=== PATIENT | female | born 2000 | race Hispanic/Latino ===

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

== ENCOUNTER 2018-12-01 09:53 | Outpatient (CLI) | payer OTHER ==
--- NOTE | 2018-12-01 12:00 | ULT ---
EXAM: Obstetrical ultrasound greater than 14 weeks: HISTORY: Size and dates, anatomy COMPARISON: None. FINDINGS: Single viable intrauterine fetus is noted in transverse maternal right side presentation. heart rate equals 143 bpm. Placenta is anterior. Cervical length is 6.8 cm. Amniotic fluid is Within normal limits. anatomy: Visualized brain, 4 chamber heart, chest, three-vessel cord, cord insert, stomach, bladder, kid neys, spine, and extremity regions are unremarkable. biometry: BPD: 4.4 cm--19 weeks 2 days Head circumference: 17.0 cm--19 weeks 5 days Abdominal circumference: 14.0 cm--19 weeks 3 days Femur length:2.9 cm--19 weeks 0 days IMPRESSION: Gestational age by ultrasound: 19 weeks 3 days TODD by ultrasound: 04/24/2019 Estimated weight: 278 g
== END 2018-12-01 09:54 | disposition home or self-care (01) ==
LOC: BICULT 09:53
PROVIDERS: ATTEND Family Medicine
DX: Z34.02 Encounter for supervision of normal first pregnancy, second trimester (principal); Z3A.19 19 weeks gestation of pregnancy
CPT/HCPCS: 76805

== ENCOUNTER 2019-04-14 11:27 | Inpatient (IN) | payer OTHER ==
[2019-04-14] MEDS ORDERED: Bupivacaine PF 0.5% 30 ML VIAL ONE (11:41)
[2019-04-14] MEDS ORDERED: Bupivacaine 0.25% HCL 30 ML VIAL ONE (11:41)
[2019-04-14 12:08] VITALS: BMI 25.7
[2019-04-14] MEDS ORDERED: hydrALAZINE 20 MG/ML VIAL SLOW IVP PRN ×2 (12:21→17:17)
[2019-04-14] MEDS ORDERED: Lidocaine 1% (PF) 30 ML VIAL SC PRN ×2 (12:21→17:17)
[2019-04-14] MEDS ORDERED: Ibuprofen 800 MG TAB PO PRN ×2 (12:21→17:17)
[2019-04-14] MEDS ORDERED: HYDROcodone/Acetaminophen 5/325 mg Tablet PO PRN ×4 (12:21→17:17)
[2019-04-14] MEDS ORDERED: Promethazine HCl 25 MG/ML VIAL IM PRN ×2 (12:21→17:17)
[2019-04-14] MEDS ORDERED: Ondansetron PF 4 MG/2 ML Vial IVP PRN ×2 (12:21→17:17)
[2019-04-14] MEDS ORDERED: NS / Oxytocin 40 units/1000ml 1,000 ML IV PRN ×2 (12:21→17:17)
[2019-04-14 13:44] LABS: Mean Corpuscular HGB CONC 35.3 g/dL (32.0-36.0); Mean Corpuscular Hemoglobin 30.9 pg (27.0-31.0); Mean Corpuscular Volume 87.6 fL (78.0-98.0); Mean Platelet Volume 10.1 fL (7.4-10.4); Platelet Count 156 thou/uL (130-400); RBC Distribution Width 12.5 % (11.5-14.5); Red Blood Cell (RBC) Count 3.57 mill/uL (4.20-5.40); White Blood Cell (WBC) Count 10.4 thou/uL (4.8-10.8)
[2019-04-14 14:09] LABS: Creatinine, Urine 21.15 mg/dL (47-110)
[2019-04-14 14:19] LABS: Syphilis Antibody Nonreactive (Nonreactive); Syphilis Antibody Index 0.02 S/CO (<1.00 Non-Reactive)
[2019-04-14 14:20] LABS: HBSAg Index 0.23 S/CO (0-0.99); Hep B Surf Ag Non-Reactive S/CO (NonReactive)
[2019-04-14 14:50] LABS: ALT (SGPT) 36 U/L (8-55); AST (SGOT) 39 U/L (5-34); Albumin 3.2 g/dL (3.5-5.0); Alkaline Phosphatase 464 U/L (40-110); Anion Gap 16 mmol/L (10-20); BUN (Urea Nitrogen) 30 mg/dL (7.0-18.7); Bilirubin, Total 1.1 mg/dL (0.2-1.2); Calc. Creatinine Clearance 50 mL/min (70-130); Calcium 8.9 mg/dL (7.8-10.44); Carbon Dioxide 21 mmol/L (22-29); Chloride 104 mmol/L (98-107); Estimated GFR-MDRD 38; Globulin 2.8 g/dL (2.4-3.5); Glucose 65 mg/dL (70-105); Potassium 4.1 mmol/L (3.5-5.1); Sodium 137 mmol/L (136-145)
[2019-04-14 14:56] LABS: Hemoglobin A1c 5.2 % (4.0-6.0)
--- NOTE | 2019-04-14 15:15 | ULT ---
Limited obstetrical ultrasound: 04/14/2019 COMPARISON: None HISTORY: Possible intrauterine growth retardation, gestational diabetes TECHNIQUE: The plantar grayscale sonographic imaging of the gravid uterus obtained. FINDINGS: Single intrauterine gestation present with a vertex presentation. Placenta located anterior ly with no evidence for placental previa or abruption. heart rate 144 bpm. Amniotic fluid index 18.4 cm. anatomy not assessed on this exam. biometry: Biparietal diameter 8.5 cm 34 weeks 1 day Head circumference 31.7 cm 35 weeks 5 days Abdominal circumference 33.4 cm 37 weeks 2 days Femur length 6.9 cm 35 weeks 3 days Estimated weight 2904 g +/- 430 g. Average age based on ultrasound is 35 weeks 5 days. Estimated date of delivery is 05/14/2019. IMPRESSION: Intrauterine gestation as detailed above. Average age based on ultrasound is 35 weeks 5 d ays.
--- NOTE | 2019-04-14 15:23 | ULT ---
BIOPHYSICAL PROFILE: 04/14/19 HISTORY: Diabetes, possible intrauterine growth retardation. Please refer to the other findings in the OB report. The biophysical profile score was 8 of a p ossible 8. heart rate is 144 beats per minute. IMPRESSION: biophysical profile score of 8 of a possible 8. POS: [facility]
[2019-04-14] MEDS ORDERED: Lactated Ringer's 1,000 ML IV SCH (16:00)
--- NOTE | 2019-04-14 16:55 | HP ---
TIME OF ADMISSION: 1500 hours. REASON FOR ADMISSION: Elevated blood pressures with proteinuria noted in the office at 38 weeks gestation with an unfavorable cervix and gestational diabetes. HISTORY OF PRESENT ILLNESS: Ms. Lopez is a 19-year-old primigravida with EDC of 04/28. She is seeing Brenda Zamorano since 7 weeks gestation. has been complicated by recurrent UTIs, which the patient has a history of urosepsis outside of . She has also developed diabetes with a 1-hour GTT of 235. The patient has been intermittently compliant with metformin at 500 b.i.d. She was noted in the office to have elevated blood pressures and also have 2+ proteinuria. She is sent over for further evaluation. DIRECTOR MUSIC HISTORY: As noted. The patient's initial hematocrit was 37%. She is not a cystic fibrosis carrier. She had abnormal 1-hour GTT and nonreactive hepatitis B. Hemoglobin A1c has been normal at 4.9. HIV was negative. Blood type is O positive. Antibody negative. Pap negative. Rubella immune. VDRL nonreactive. The patient had a positive urine culture for E coli in August and has a history of urosepsis. MEDICAL HISTORY: The patient had urosepsis back in 2016. Of note, her creatinine at that time was up to 1.36, but it got down to about 1.1 after treatment. SURGICAL HISTORY: Tubes and adenoids. SOCIAL HISTORY: Denies tobacco, alcohol, or IV drug use. FAMILY HISTORY: Noncontributory. ALLERGIES: DENIES. MEDICATIONS: vitamins and Macrobid nightly and metformin. PHYSICAL EXAMINATION: GENERAL: female resting comfortably. VITAL SIGNS: Blood pressure 138/92, pulse 85, respirations 18, and temperature 98.8. HEENT: Within normal limits. LUNGS: Clear to auscultation bilaterally. HEART: Regular rate and rhythm. ABDOMEN: Her fundal height is 35 cm. FHTs 140s. Vulva without lesions. Vaginal exam deferred. Cervix reported to be closed, long, and high at Dr. Zamorano's office. EXTREMITIES: No clubbing, cyanosis, or edema. DIAGNOSTIC STUDIES: Ultrasound today revealed a biophysical profile of 8/8. Fetus is noted to be vertex presentation with an SAMPSON of 18. Composite gestational age of 35 weeks and 5 days with EFW of 2904, was less than a 50th percentile if not reached the 5th percentile for IUGR for this gestational age. LABORATORY DATA: Laboratory results include a hematocrit of 31% and a platelet count of 156. The patient has noted to have a BUN of 30, a creatinine of 1.68, and a glucose is 65. The patient is asymptomatic from this. AST is slightly elevated at 39, ALT is within normal limits, and alkaline phosphatase is 264. The patient's urine protein to creatinine ratio is approximately 1.3 with creatinine low at 21.15. IMPRESSION: A 38 weeks small for dates gestation with gestational diabetes, on metformin with elevated creatinine and elevated protein to creatinine ratio, laboratory findings consistent with dehydration, and mildly elevated blood pressures without headaches or scotoma. PLAN: Discussed the patient's care of plan with Dr. Zamorano. We will admit the patient. Bolus 1 L of lactated Ringer's. Continue at 100 mL an hour. Check a 24-hour urine and repeat labs in the morning. We will perform serial blood pressures on the floor. We will get renal ultrasound to evaluate kidneys, and keep the patient on Macrodantin at bedtime for UTI prophylaxis. We will hold Glucophage at this time and follow Accu-Cheks q.[address] Zamorano will likely manage the patient beginning 2:14 a.m. Job ID: [id number]
[2019-04-14] MEDS ORDERED: Butorphanol Tartrate 1 MG/ML VIAL SLOW IVP PRN (17:17)
[2019-04-14] MEDS: Lactated Ringer's 1,000 ML IV SCH (17:20)
[2019-04-14] MEDS ORDERED: Misoprostol 100 MCG TAB VAG SCH (17:45)
--- NOTE | 2019-04-14 17:54 | ULT ---
RENAL ULTRASOUND: 04/14/19 COMPARISON: 07/13/16. HISTORY: . Elevated creatinine. TECHNIQUE: Multiplanar soria scale sonographic imaging of the kidneys and urinary bladder obtained. FINDINGS: The right kidney measures approximately 8.9 x 3.2 x 3.4 cm, relatively small. No hydronephrosis is no marcela on the right. Right renal parenchyma is echogenic, suspicious for possible renal medical disease. There are small cysts within the right kidney measuring in the 8-9 mm range. There is severe left sided hydronephrosis. Left kidney measures 8.8 x 4.5 x 4.3 cm. There is prominen t dilation of the proximal left ureter. Prevoid urinary bladder volume is 254 mL. Postvoid urinary bl adder volume is 62 mL. The hydronephrosis and hydroureter on the left persists on the postvoid imagin g. IMPRESSION: 1. Prominent left sided hydronephrosis and hydroureter seen on pre and postvoid imaging. 2. Possible renal medical disease. 3. Hydronephrosis on the left discussed with Dr. Lui at approximately 4:55 p.m., 04/14/19. Code CR POS: [facility]
--- NOTE | 2019-04-14 18:16 | ULT ---
EXAM: US Bladder DATE: 04/14/2019 12:00 AM INDICATION: Evaluate for ureteral jets COMPARISON: None. FINDING: Left and right ureteral jets are demonstrated on color Doppler imaging. IMPRESSION:Demonstration of both left and right ureteral jets.
--- NOTE | 2019-04-14 21:42 | PRG ---
DATE OF SERVICE: 04/14/2019 TIME OF SERVICE: 2119. SUBJECTIVE: Renal ultrasound was obtained on the Ms. Lopez. Findings by Dr. Nassar were discussed with myself at 5:00 pm this evening. The findings include the right kidney measuring 9 x 3 x 3.5 cm, relatively small with no hydronephrosis. Echogenic renal parenchyma, suspicious for intrinsic renal disease with small cyst in the right kidney measuring 8 to 9 mm in greatest diameter. There was severe left-sided hydronephrosis with a kidney measuring 8.8 x 4.5 x 4 cm. There was prominent dilatation of the proximal left ureter. Urinary bladder imaging revealed bilateral ureteral jets ruling out distal obstruction leading to hydronephrosis. While hydronephrosis is common in , it is more common on the right than on the patient's left due to pelvic anatomy. It is unclear as to why the patient has significant hydronephrosis. Renal size is about the same as noted in 2017 on a renal ultrasound when the patient had pyelo, however, the hydronephrosis was not noted. I discussed the patient with Dr. Brenda Zamorano. We both agreed that the most prudent course at this point in time would be to proceed with induction of labor for vaginal delivery and re-evaluate hydronephrosis on the patient's left post delivery. The patient has been started on Cytotec at 15 mcg x1 in the vagina. She has an unfavorable cervix, but has had significant contractions that precluded a second dose of Cytotec. We will continue with Cytotec as allowed per protocol throughout the night and anticipate Pitocin induction on 04/15. heart rate tracing remained category 1. Job ID: [id number]
[2019-04-14] MEDS: Nitrofurantoin Macrocrystal 50 MG CAP PO SCH (23:20)
[2019-04-15] MEDS: Lactated Ringer's 1,000 ML IV SCH ×3 (01:15→21:29)
[2019-04-15] MEDS: Misoprostol 100 MCG TAB VAG SCH ×3 (04:07→13:44)
[2019-04-15 09:45] LABS: ALT (SGPT) 43 U/L (8-55); AST (SGOT) 47 U/L (5-34); Albumin 2.8 g/dL (3.5-5.0); Alkaline Phosphatase 402 U/L (40-110); Anion Gap 17 mmol/L (10-20); BUN (Urea Nitrogen) 31 mg/dL (7.0-18.7); Bilirubin, Total 1.4 mg/dL (0.2-1.2); Calc. Creatinine Clearance 47 mL/min (70-130); Calcium 8.4 mg/dL (7.8-10.44); Carbon Dioxide 19 mmol/L (22-29); Chloride 109 mmol/L (98-107); Estimated GFR-MDRD 36; Globulin 2.8 g/dL (2.4-3.5); Glucose 98 mg/dL (70-105); Potassium 4.1 mmol/L (3.5-5.1); Protein, Total 5.6 g/dL (6.0-8.3); Sodium 141 mmol/L (136-145)
[2019-04-15] MEDS ORDERED: Fentanyl 4 mcg/Bup 0.1% Cadd 100 ML ONE ×2 (10:50→20:33)
[2019-04-15] MEDS ORDERED: diphenhydrAMINE 50 MG/ML VIAL IVP PRN (11:25)
[2019-04-15] MEDS ORDERED: EPHEDRINE 25 MG/5 ML SYRINGE SLOW IVP PRN (11:25)
[2019-04-15] MEDS ORDERED: Ondansetron PF 4 MG/2 ML Vial IVP PRN (11:25)
[2019-04-15] MEDS ORDERED: Lactated Ringer's 500 ML IV PRN (11:25)
[2019-04-15] MEDS ORDERED: Promethazine HCl 25 MG/ML VIAL IM PRN (11:25)
[2019-04-15] MEDS ORDERED: Naloxone HCl 0.4 mg/ml Vial IVP PRN ×2 (11:25)
[2019-04-15] MEDS ORDERED: Communication Order-Pharmacy FS SCH (11:30)
[2019-04-15] MEDS: NS w/ Oxytocin 10 units 500 ML IV SCH (12:09)
[2019-04-15] MEDS: Prenatal Vitamin 1 TAB PO SCH (13:44)
[2019-04-15 17:19] LABS: Urine Total Volume 3850 mL (600-1600)
[2019-04-15 17:37] LABS: 24 Hr Creatinine 850.85 mg/24 hr (710-1650); Creatinine, Urine 22.1 mg/dL (47-110)
[2019-04-15 17:39] LABS: Protein - 24 Hr 1155 mg/24 hr (Less than 300); Protein, Urine 30 mg/dL (1-14)
--- NOTE | 2019-04-15 18:35 | PDOC.EVN ---
Event Note - Event Note Event Note: Asked to AROM by Dr. Zamorano. Comfortable with epidural. SVE /-1, vtx. FHTs stable. AROM- meconium seen. IUPC to be placed by Labor RN.
[2019-04-15] MEDS ORDERED: Calcium Gluc 4.6 MEQ/10 ML (100 MG/ML) SLOW IVP PRN (20:29)
[2019-04-15] MEDS ORDERED: Magnesium Sulfate 20 GM/WATER 500 ML BAG IVPB SCH (20:30)
[2019-04-15] MEDS: Fentanyl 4 mcg/Bupivacaine 0.1% Cassette 100 ML EPIDURAL SCH (20:35)
[2019-04-15] MEDS: Magnesium Sulfate 20 GM in Dextrose 5% in Water 460 ML IV SCH (20:52)
[2019-04-15] MEDS ORDERED: hydrALAZINE 20 MG/ML VIAL SLOW IVP SCH (21:00)
[2019-04-16] MEDS ORDERED: hydrALAZINE 20 MG/ML VIAL SLOW IVP SCH (00:45)
[2019-04-16] MEDS: Magnesium Sulfate 20 GM in Dextrose 5% in Water 460 ML IV SCH ×2 (05:27→19:09)
[2019-04-16] MEDS ORDERED: Fentanyl 4 mcg/Bup 0.1% Cadd 100 ML ONE (06:19)
[2019-04-16] MEDS: Fentanyl 4 mcg/Bupivacaine 0.1% Cassette 100 ML EPIDURAL SCH (06:21)
[2019-04-16] MEDS ORDERED: Ketorolac Tromethamine 30 MG/ML VIAL ONE (07:47)
[2019-04-16] MEDS ORDERED: Oxytocin 10 UNITS/ML VIAL ONE ×2 (07:47→08:33)
[2019-04-16] MEDS ORDERED: MORPHINE 5 MG/10 ML PF VIAL ONE (07:47)
[2019-04-16] MEDS ORDERED: Ondansetron PF 4 MG/2 ML Vial ONE (07:48)
[2019-04-16] MEDS ORDERED: EPHEDRINE 25 MG/5 ML SYRINGE ONE (07:48)
[2019-04-16] MEDS ORDERED: PHENYLEPHRINE-NS 100 MCG/ML 10 ML SYRINGE ONE (07:48)
[2019-04-16] MEDS ORDERED: Dexamethasone 4 mg/ml Vial ONE (08:24)
[2019-04-16 08:37] LABS: Actual Bicarbonate (HCO3a) 21.4 mEq/L (22-28); Actual Bicarbonate (HCO3v) 20 mEq/L (22-28); Base Excess -6.6 mEq/L (-2.0 to +3.0); Base Excess (BEa) -6.9 mEq/L (-2.0 to +3.0); pH (Cord, venous) 7.28 (7.32-7.43)
[2019-04-16] MEDS ORDERED: Promethazine HCl 25 MG SUPP PR PRN (08:40)
[2019-04-16] MEDS ORDERED: Ondansetron HCl/PF 4 MG/2 ML Vial IVP PRN (08:40)
[2019-04-16] MEDS ORDERED: diphenhydrAMINE 50 MG/ML VIAL IVP PRN (08:40)
[2019-04-16] MEDS ORDERED: HYDROmorphone 2 MG/ML VIAL SLOW IVP PRN (08:40)
[2019-04-16] MEDS ORDERED: Ondansetron PF 4 MG/2 ML Vial IVP PRN ×2 (08:40→11:33)
[2019-04-16] MEDS ORDERED: L&D-Morphine 4 MG/ML VIAL SLOW IVP PRN (08:40)
[2019-04-16] MEDS ORDERED: Promethazine HCl 25 MG/ML VIAL IM PRN (08:40)
[2019-04-16] MEDS ORDERED: Naloxone HCl 0.4 mg/ml Vial IVP PRN ×2 (08:40)
[2019-04-16] MEDS ORDERED: Meperidine HCl/PF 25 MG/ML VIAL SLOW IVP PRN (08:40)
[2019-04-16] MEDS ORDERED: Naloxone HCl 0.4 mg/ml Vial IV PRN (08:40)
[2019-04-16] MEDS ORDERED: Communication Order-Pharmacy FS SCH (08:45)
--- NOTE | 2019-04-16 09:10 | OP ---
DATE OF PROCEDURE: 04/16/2019 PREOPERATIVE DIAGNOSES: 1. Term intrauterine with acute versus chronic renal failure. 2. Gestational hypertension. 3. Gestational diabetes. 4. Nonreassuring heart tones. POSTOPERATIVE DIAGNOSES: 1. Term intrauterine with acute versus chronic renal failure. 2. Gestational hypertension. 3. Gestational diabetes. 4. Nonreassuring heart tones. 5. Status post delivery. PROCEDURE PERFORMED: Primary low-transverse section. MACHINE SIGN WRITER: Yan Modi MD ANESTHESIA: Epidural anesthetic. COMPLICATIONS: No complications. DESCRIPTION OF PROCEDURE: After adequate spinal anesthetic, the patient had been placed in the supine position. A wedge was placed under her right flank. The abdomen was prepped and draped in usual sterile technique. A Pfannenstiel incision was made in the inferior aspect of the abdomen. Subcutaneous tissue was opened with sharp dissection. Fascia was opened with sharp dissection. Peritoneum opened with sharp and blunt dissection. It was noted that the abdomen was still with a gravid uterus. A bladder blade was placed and a low-transverse incision was made on the uterus. Noted, moderate meconium fluid. A viable male infant was delivered from OP vertex presentation without difficulty. breathed and cried spontaneously. Cord was clamped and cut and was handed to the care of the Neonatology Team. A section of the cord was excised and sent for cord gases and additional cord blood was obtained. The placenta was delivered manually and appeared intact. The uterus was taken external to the abdominal cavity. Wet lap was placed over the uterus and a second lap used to wipe and clean the uterus. Hysterotomy edges were grasped with ring forceps and the hysterotomy was then closed in one layer in continuous fashion using 0 Monocryl. Sponge and instrument counts were correct. Hemostasis was adequate. There was no bleeding from the hysterotomy edges. Two small bleeders were cauterized on the bladder flap. The wound was inspected. There were no clots in the gutters. No additional bleeding. Noted that there was a buttonhole defect in the anterior fascia, which was repaired with a [id number] fashion with 0 Monocryl and then the fascia was then closed in continuous fashion using 0 Monocryl. Sponge and instrument counts were correct. Few bleeders were cauterized on the subcutaneous tissue and this were then closed with 2-0 plain suture in a running fashion and the skin was closed using tim. The patient tolerated the procedure well, to go to recovery room in good condition. Noted that the baby is a viable male in level I nursery, weight 6 pounds 9 ounces with 7 at one minute, 9 at five minutes and the patient to go to recovery room and subsequently LICU to continue magnesium sulfate. Job ID: [id number]
[2019-04-16 10:05] LABS: ALT (SGPT) 39 U/L (8-55); AST (SGOT) 47 U/L (5-34); Albumin 2.4 g/dL (3.5-5.0); Alkaline Phosphatase 374 U/L (40-110); Anion Gap 17 mmol/L (10-20); BUN (Urea Nitrogen) 24 mg/dL (7.0-18.7); Bilirubin, Total 1.7 mg/dL (0.2-1.2); Calc. Creatinine Clearance 44 mL/min (70-130); Calcium 7.8 mg/dL (7.8-10.44); Carbon Dioxide 17 mmol/L (22-29); Chloride 102 mmol/L (98-107); Estimated GFR-MDRD 33; Globulin 2.6 g/dL (2.4-3.5); Glucose 144 mg/dL (70-105); Sodium 132 mmol/L (136-145)
[2019-04-16 10:31] LABS: Magnesium 9.4 mg/dL (1.6-2.6)
[2019-04-16] MEDS ORDERED: Bisacodyl 10 MG SUPP PR PRN (11:33)
[2019-04-16] MEDS ORDERED: Simethicone Chewable 80 MG TAB PO PRN (11:33)
[2019-04-16] MEDS ORDERED: Acetaminophen 325 MG TAB PO PRN (11:33)
[2019-04-16] MEDS ORDERED: hydrALAZINE 20 MG/ML VIAL SLOW IVP PRN (11:33)
[2019-04-16] MEDS ORDERED: Lanolin Ointment 7 GM TUBE TOP PRN (11:33)
[2019-04-16] MEDS ORDERED: diphenhydrAMINE 25 MG CAP PO PRN (11:33)
[2019-04-16] MEDS ORDERED: Meperidine HCl/PF 25 MG/ML VIAL ONE (12:41)
[2019-04-16 18:20] LABS: Hemoglobin 6.8 g/dL (12.0-16.0); Mean Corpuscular HGB CONC 34.9 g/dL (32.0-36.0); Mean Corpuscular Hemoglobin 31.4 pg (27.0-31.0); Mean Corpuscular Volume 89.9 fL (78.0-98.0); Mean Platelet Volume 9.6 fL (7.4-10.4); Platelet Count 131 thou/uL (130-400); RBC Distribution Width 12.8 % (11.5-14.5); Red Blood Cell (RBC) Count 2.15 mill/uL (4.20-5.40); White Blood Cell (WBC) Count 22.4 thou/uL (4.8-10.8)
[2019-04-16 18:25] LABS: Prothrombin Time 13.6 SEC (12.0-14.7)
[2019-04-16 18:26] LABS: PTT 33.1 SEC (22.9-36.1)
[2019-04-16 18:36] LABS: Band 45 % (5-11); Lymphocytes 4 % (21-51); MDiff Complete? YES; Metamyelocyte 4 % (0-0); Monocytes 1 % (0-10); Neutrophil 46 % (42-75); Platelet Morphology Comment Appears Adequate; Polychromasia SLIGHT = 2-3 cells (100X) (0-2/hpf); Reflex for Review?? YES
[2019-04-16 18:37] LABS: Bacteria/HPF None Seen HPF (None Seen); Bilirubin Negative (Negative); Blood, Urine Negative (Negative); Clarity Clear (Clear); Glucose, Urine (Dipstick) Normal (Negative); Leukocyte Negative Leu/uL (Negative); Nitrite Negative (Negative); Protein, Urine (Dipstick) Negative (Neg-Trace); RBC/HPF 0-3 HPF (0-3); Squamous Epithelial 0-3 HPF (0-3); Urobilinogen Normal mg/dL (Less than 2); WBC/HPF 0-3 HPF (0-3)
--- NOTE | 2019-04-16 18:53 | ULT ---
Exam: Bilateral renal ultrasound HISTORY: Anuria. Elevated creatinine. COMPARISON: 04/14/2019 FINDINGS: Right kidney: Normal cortical echotexture. No hydronephrosis. There is right renal cortical thinning. Right kidney measurements: 3.7 x 4.0 x 8.3 cm. Left kidney: Normal cortical echotexture. Moderate left-sided hydronephrosis. Left kidney measurements 4.4 x 4.1 x 8.4 cm. Urinary bladder: Not be assessed due to bandage overlying the location of the bladder. Trace amount of fluid in the right upper quadrant is noted IMPRESSION: 1. Improved left-sided hydronephrosis. Currently, there is moderate left-sided hydronephrosis. 2. Right renal cortical thinning. Correlate for medical renal disease. 3. Trace amount of fluid in the right upper quadrant. Transcribed Date/Time: 04/16/2019 7:01 PM
[2019-04-16] MEDS: Misoprostol 100 MCG TAB VAG SCH ×2 (19:10→19:11)
[2019-04-16] MEDS: NS w/ Oxytocin 10 units 500 ML IV SCH (19:11)
[2019-04-16] MEDS: Prenatal Vitamin 1 TAB PO SCH (19:12)
[2019-04-16] MEDS: Lactated Ringer's 1,000 ML IV SCH (19:12)
--- NOTE | 2019-04-16 19:38 | CT ---
Exam: Abdomen CT without contrast Pelvic CT without contrast HISTORY: Chronic renal failure. Hydronephrosis. patient. FINDINGS: Abdomen CT: Small bilateral effusion. Bibasilar consolidation may represent atelectasis. Heart size is normal. No significant pericardial fluid. Aorta is unremarkable Limited evaluation of the solid organs by the lack of IV contrast. There is no solid organ abnormalit y. Gallbladder is unremarkable There is free fluid in the abdomen, tracking into the pelvis. Nonobstructing calculus in the upper pole the right kidney measures 1 mm. No significant right sided obstructive uropathy. Moderate left sided hydronephrosis and hydroureter. No evidence of associated obstructing calculus. Evaluation of the left ureter is limited by decreased visceral fat. No mesenteric mass, lymphadenopathy. There are small pockets of free air in the lower pelvic mesenter y, compatible with recent section. Limited evaluation of the alimentary canal by the lack of oral contrast. No evidence of bowel obstruc tion. Pelvic CT: Heterogeneous, enlarged uterus compatible with a state. There are postoperative changes compatible with a section. There are pockets of free air and fluid within the peritoneal cavity as well as within the subcutaneous fat and ventral abdominal musculature. Skin stap les are noted. Leija catheter decompresses the urinary bladder. No lytic or blastic lesions in the osseous structures IMPRESSION: 1. Findings compatible with recent section. 2. Free fluid in the abdomen or pelvis. 3. Moderate right-sided hydronephrosis and hydroureter. Transcribed Date/Time: 04/16/2019 8:03 PM
[2019-04-16 19:50] LABS: ALT (SGPT) 26 U/L (8-55); AST (SGOT) 34 U/L (5-34); Alkaline Phosphatase 273 U/L (40-110); Anion Gap 17 mmol/L (10-20); BUN (Urea Nitrogen) 28 mg/dL (7.0-18.7); Bilirubin, Total 1.7 mg/dL (0.2-1.2); Calc. Creatinine Clearance 40 mL/min (70-130); Calcium 7.4 mg/dL (7.8-10.44); Carbon Dioxide 18 mmol/L (22-29); Chloride 100 mmol/L (98-107); Estimated GFR-MDRD 30; Globulin 1.8 g/dL (2.4-3.5); Glucose 119 mg/dL (70-105); Potassium 4.7 mmol/L (3.5-5.1); Protein, Total 3.8 g/dL (6.0-8.3); Sodium 130 mmol/L (136-145)
[2019-04-16] MEDS: Acetaminophen/Codeine 30-300mg Tablet PO PRN (21:07)
[2019-04-17 05:30] LABS: Hemoglobin 5.6 g/dL (12.0-16.0); Mean Corpuscular HGB CONC 34.4 g/dL (32.0-36.0); Mean Corpuscular Hemoglobin 31.3 pg (27.0-31.0); Mean Corpuscular Volume 90.8 fL (78.0-98.0); Mean Platelet Volume 9.5 fL (7.4-10.4); Platelet Count 146 thou/uL (130-400); RBC Distribution Width 13.1 % (11.5-14.5); Red Blood Cell (RBC) Count 1.77 mill/uL (4.20-5.40); White Blood Cell (WBC) Count 20.3 thou/uL (4.8-10.8)
[2019-04-17 05:42] LABS: ALT (SGPT) 19 U/L (8-55); AST (SGOT) 30 U/L (5-34); Alkaline Phosphatase 225 U/L (40-110); Anion Gap 14 mmol/L (10-20); BUN (Urea Nitrogen) 31 mg/dL (7.0-18.7); Bilirubin, Total 0.9 mg/dL (0.2-1.2); Calc. Creatinine Clearance 37 mL/min (70-130); Carbon Dioxide 19 mmol/L (22-29); Chloride 103 mmol/L (98-107); Estimated GFR-MDRD 27; Globulin 2.4 g/dL (2.4-3.5); Glucose 75 mg/dL (70-105); Potassium 4.9 mmol/L (3.5-5.1); Protein, Total 4.4 g/dL (6.0-8.3); Sodium 131 mmol/L (136-145)
--- NOTE | 2019-04-17 06:36 | PDOC.EVN ---
Event Note - Event Note Event Note: labs this morning sig for h/h down to 5.6/16 from 6.8/19. platelets stable at 146 up from 135. t bili down to 0.9 from 1.7. creatinine continues to climb. 2.29 from 2.09. pt has preeclampsia with acute kidney injury on top of chronic kidney disease. uo has been steady at 30-85cc/hr. and clearing. vitals have been stable with bp in 100s/50's pulse in the 80s. Since attempting to get second IV pt has increase in bp and pulse. this is blood loss from surgery vs hemolysis from HELLP. repeat coags, haptoglobin to eval for hemolysis, ldh, uric acid. repeat CT this morning. PT getting a unit of prbcs. fibrinogen. estimated total iv fluids since admission is 8 liters. urine output since thursday evening is documented at 1699cc. i am not sure the urine out put prior to placement of the soni currently pt appears to be entering her diuresis phase with uo acutely rising, also pointing aware from acute blood loss post operatively. last hour is 245cc an hour.
[2019-04-17 07:13] LABS: PTT 33.8 SEC (22.9-36.1)
[2019-04-17 07:23] LABS: Band 56 % (5-11); Lymphocytes 1 % (21-51); MDiff Complete? YES; Monocytes 3 % (0-10); Neutrophil 40 % (42-75)
--- NOTE | 2019-04-17 08:18 | CT ---
CT ABDOMEN AND PELVIS WITHOUT CONTRAST: 04/17/2019 HISTORY: Recent . Concern for bleeding. COMPARISON: 04/16/2019 TECHNIQUE: Axial CT imaging at 5 mm intervals from the lung bases through the pubic symphysis without contrast. Coronal and sagittal reformatted imaging obtained. FINDINGS: Evaluation of the viscera, bowel and vascular structures and for lymphadenopathy is limited without c ontrast media. The imaged lung base demonstrate increased linear density within the posteromedial asp ects of both lower lobes, suggesting volume loss. The liver is grossly unremarkable. There is stable nonspecific distention of the gallbladder. Stable small volume free fluid is seen adjacent to the right lobe of the liver, anterolaterally. There is fr ee fluid inferior to the tip of the right lobe of the liver, some of which is hyperdense, consistent with hemoperitoneum. The spleen appears grossly unremarkable. There is hyperdense fluid within the le ft paracolic gutter, along the course of the descending colon, consistent with hemoperitoneum in this region as well. This is stable when compared to the 04/16/2019 exam. Limited assessment of the pancr eas and bilateral adrenal glands appears unremarkable. Nonspecific poorly assessed/evaluated left-tegan ed hydronephrosis and proximal hydroureter. Punctate nonobstructing stone upper pole right kidney, st able. Consistent with the patient's history of a recent section, horizontally oriented cutaneous s taples are noted inferiorly. Numerous foci of gas noted throughout the rectus abdominis musculature, consistent with recent surgical procedure. Leija catheter present within a mildly prominent urinary b ladder. There is fluid within the urinary bladder and an air-fluid level. Recommend evaluation for Fo anahi catheter malfunction. The uterus is markedly enlarged and heterogeneous, Internal contents of the uterus are heterogeneous and hyperdense with intermixed gas, consistent with a degree of hemorrhage within the endometrial can al. In the endocervical canal there is expansion with hyperdense material and gas, also consistent wi th hemorrhage, not significantly changed. There is a hematoma within the pelvis, anterior to the lowe r uterine segment and superior to the urinary bladder, measuring 9.1 x 3.6 cm, not significantly cao ged. There is free fluid within the pelvis bilaterally with hemorrhage, as evidenced by multifocal ar eas of hyperdensity within the free pelvic fluid anteriorly, as before. Limited assessment of the bow el demonstrates no convincing evidence for obstruction. Vascular structures are poorly assessed witho ut contrast medial. The osseous structures demonstrate no acute findings. IMPRESSION: Findings consistent with recent section. There is free fluid in the left upper quadrant, mayra ateral paracolic gutters, and within the pelvis with intermixed areas of hyperdensity, consistent wit h extensive stable hemoperitoneum. There is a stable hematoma within the pelvis, anterior to the lowe r uterine segment and superior to the urinary bladder, measuring 9.1 x 3.6 cm. Additional stable find ings as detailed above. CODE T POS: [facility]
--- NOTE | 2019-04-17 08:22 | CON ---
DATE OF CONSULTATION: 04/16/2019 REFERRING PHYSICIAN: Brenda Zamorano MD. CHIEF COMPLAINT: Preeclampsia with acute kidney injury or with anuria. HISTORY: The patient is a 19-year-old female who was diagnosed with preeclampsia with severe features, with gestational diabetes. The patient's labor course ended in primary for nonreassuring heart tones. Of note, on arrival, the patient was noted to have elevated creatinine of 1.7 or 1.68. Postoperatively, the patient became anuric with a rising creatinine. Nephrology was consulted and on evaluation, Dr. Okeefe believes the patient has underlying kidney disease with scarring and strong family history of likely contributing to the patient's current condition. The patient had been placed on magnesium postdelivery and was noted to have, when she became anuric to have, a magnesium level of 8.4. Magnesium was discontinued and magnesium had peaked at 9.4, and has been coming down on its own. Differential at this point in time from an OB-related standpoint would be preeclampsia with acute kidney disease, which can occur 1% to 3% of the time, HELLP syndrome, which has an acute kidney injury a little more often at 3% to 10% or acute fatty liver, rare though is very common to have kidney injury. Lab work does not point to acute fatty liver as the patient's coags are normal. Serum glucose has been appropriate and her LFTs have been trending down. HELLP syndrome labs demonstrate a normal platelet count. It shows a dropping hemoglobin went from 11.0 at the time of arrival to 6.8 postoperatively. Of note, the surgery had very well controlled bleeding with no complications and quantitative blood loss 200 to 300 mL. LDH was elevated at 300, does not seem excessively high. Her total bilirubin is elevated at 1.7. On the morning of 04/17, the patient's blood counts dropped further to 5.6, hematocrit 16.1, and platelets had elevated up to 146. Vital signs through the night have been stable with blood pressures in the 100s/50s. Urine output steady at 30 to 85 mL an hour and clearing. Repeat CT has been ordered this morning as well as repeat coags, fibrinogen, uric acid and LDH to look for further signs of hemolysis. The patient's total fluid status needs to be evaluated since time of admission; however, over postoperatively, the patient is positive, we will take at least a couple of liters. When CT scan is performed, we will have a better idea of we need to proceed to surgery for resolution of bleeding. She is receiving 1 unit of packed red blood cells now and will be kept a close eye on her. Urology is planning on coming to evaluate. Nephrology is following her acute kidney failure and Dr. Brenda Zamorano, is primary provider for Ms. Lopez. Evidence points to preeclampsia versus HELLP syndrome with preeclampsia being most likely and acute kidney failure on top of chronic disease that could be associated with her disease process versus medication usage as the patient received a dose of Toradol in the OR versus HELLP syndrome versus acute blood loss anemia. Hopefully, this morning in short while we will be able to make more sense of what is occurring and make appropriate decisions. Job ID: [id number]
--- NOTE | 2019-04-17 10:27 | ULT ---
EXAM: Pelvic ultrasound HISTORY: Pelvic pain COMPARISON: None TECHNIQUE: Multiple grayscale and color Doppler images were obtained in a transabdominal and transvag inal pelvic ultrasound. FINDINGS: Limited visualization urinary bladder was performed. A catheter is seen in the bladder. No focal abno rmalities seen in the urinary bladder. Both ureteral jets were visualized. IMPRESSION: Both ureteral jets visualized.
--- NOTE | 2019-04-17 11:37 | CON ---
DATE OF CONSULTATION: 04/17/2019 REASON FOR CONSULTATION: 1. Renal insufficiency, history of UTI. 2. Decreased urine output, renal insufficiency. HISTORY OF PRESENT ILLNESS: Ms. Lopez is a 19-year-old female, followed by Dr. Zamorano. She at 38 weeks, underwent due to concern for preeclampsia. Preop urine demonstrated proteinuria. The patient is hypertensive. She is known to have renal insufficiency prior to her . Two days before her , her creatinine is 1.6. Her baseline creatinine is anywhere from 1.0 to 1.3. I did review her previous imaging, dating back to June 2016, in which she had no evidence of hydronephrosis, punctate right renal calculi with creatinine of 1.3, in which she presented with pyelonephritis/urosepsis. She denies prior history of urologic assessment. However, does have family history of renal failure. at bedside. Delivery of a healthy boy. Nephrology has been consulted. Subsequently, Urology was consulted due to decreased urine output. Her urine output did drop to 35 to 50 mL an hour. Since the events of decreased urine output, a renal ultrasound was obtained, as well as CT of the abdomen and pelvis x2 for staging as there is also concern for acute blood loss due to postop anemia of 6.8 and 5.3 this morning. She is hemodynamically stable. I reviewed all her imaging back to 2016. Family at bedside. I did order a stat transvaginal abdominal ultrasound to assess for ureteral jets. The patient currently resting comfortably. PAST MEDICAL HISTORY: History of E coli urosepsis in June 2016. On August of 2018 , she did have E coli. Her recent urine culture on March 31 is group B beta Streptococcus and has been on Macrobid. PAST SURGICAL HISTORY: T and A, recent in April [address] Zamorano. Per her, surgery was uneventful. SOCIAL HISTORY: Denies illicit drug use. FAMILY HISTORY: Positive for end-stage renal disease. ALLERGIES: DENIES ALLERGIES. MEDICATIONS: She has been taking nightly Macrobid, metformin at home. PHYSICAL EXAMINATION: GENERAL: The patient is in no acute distress. Appears nontoxic appearing. Hemodynamically stable. VITAL SIGNS: Stable at 98.7, 18, 97, 96, 114/65. I's and O's; her decreased urine output of 35 to 50 mL an hour has significantly picked up over the last 6 hours of hourly urine output of 100, 285, 480, 380, 230 per hourly. HEART: Regular rate. LUNGS: Clear. ABDOMEN: Gravid abdomen due to recent incision, tim are intact. GENITOURINARY: Demonstrates labial edema. Leija catheter demonstrating clear yellow urine. optical lab technician is at bedside. Extremities no cyanosis clubbing or edema no calf tenderness Neurologic: No gross focal deficits per se PERTINENT LABORATORY AND IMAGING DATA: On postop day #0, white count of 22, hemoglobin 6.8, previously her hemoglobin was 12, platelet 131. Recheck H and H this morning is 5.6, white count 20, platelet 146. Coagulation profile is unremarkable. Fibrinogen is elevated at 726. BMP: Sodium 131; potassium 4.9; creatinine is 2.2, yesterday 2.0, on April 16 day of , 1.9, on April 15 of 1.7, on April 14 of 1.6. Her baseline creatinine is 1.0. When presenting with urosepsis in June 2016, highest creatinine level was 1.3. Her recent UA straight cath is clear. No evidence of proteinuria. Previous urine from April 15 does demonstrate 30 proteinuria. April 14, 2019, renal bladder ultrasound demonstrates bilateral ureteral jets. Ultrasound demonstrating left hydronephrosis. April 16, 2019, repeat renal ultrasound demonstrates improved left hydronephrosis, right renal cortical thinning. CT April 16, 2019, finding consistent with recent . Nonobstructing right upper pole renal calculi. There is no evidence of right hydroureteronephrosis. Moderate left hydroureteronephrosis with no evidence of ureteral calculi, changes consistent with recent with hemoperitoneum. Repeat staging CT obtained by OB Service on April 17, 2019 a.m. demonstrates hyperdense fluid in the left paracolic gutter stable consistent with hemoperitoneum, stable right punctate renal calculi with no evidence of hydronephrosis, left hydroureteronephrosis as previous. IMPRESSION AND PLAN: 1. Ms. Lopez is a 19-year-old female, G1, P1 with urologic issues of Escherichia coli urosepsis back in 2017. 2. History of right punctate renal lithiasis, nonobstructing. 3. Current admission on postop day #1, status post section due to concern for preeclampsia, proteinuria. 4. Oliguria, improved with observation. 5. History of left hydronephrosis. This is likely physiologic due to her as we have documented on transvaginal and abdominal ultrasound today with bilateral efflux of urine. Moreover, her urine output is significantly improved over the last few hours, therefore no surgical intervention is warranted. Her oliguria and acute renal insufficiency are likely multifactorial due to recent acute blood loss, NSAID/Toradol use intraoperatively, likely prerenal as well. There is no surgical intervention warranted at this time. Monitor creatinine, continue indwelling Leija catheter. Due to the patient's clinical status, Dr. Zamorano plans to transfer patient to an ICU setting as there was concern for acute blood loss. will follow. Extensive time spent with patient at bedside, reviewing all imaging and labs. Job ID: [id number] [facility]
--- NOTE | 2019-04-17 13:03 | CON ---
DATE OF CONSULTATION: 04/16/2019 REASON FOR CONSULTATION: Elevated creatinine. HISTORY OF PRESENTING ILLNESS: This is a very pleasant 19-year-old female who presented to the hospital for a delivery. Her baseline creatinine was 1.6 on admission, which increased to 1.9. So I was consulted. The patient has had multiple episodes of with acute kidney injury and her renal imaging a few days ago showed renal scarring on the right side and hydronephrosis on the left side. The patient is very somnolent and can give no further history. The patient's magnesium level was 7.7 on examination, which has been trending downward. The patient is not bradycardic. PAST MEDICAL HISTORY: Significant for chronic kidney disease, a very strong family history of end-stage renal disease, history of recurrent UTIs, possibly urosepsis, two episodes of acute kidney injury, history of tubes and adenoids. SOCIOECONOMIC HISTORY: No alcohol or drug use. FAMILY HISTORY: Negative for ESRD. ALLERGIES: REVIEWED. MEDICATIONS: Home medications, reviewed. Hospital medications, reviewed. REVIEW OF SYSTEMS: Unobtainable. Patient very somnolent. PHYSICAL EXAMINATION: See above. GENERAL: Patient is resting. VITAL SIGNS: Afebrile, pulse 75, breathing 16, blood pressure 116/57. GENERAL APPEARANCE AND MENTAL STATUS: Fair. HEAD/NECK: Normocephalic. Atraumatic. EYES: EOMI. No deformity. EARS: Clear. No ulcers. NOSE: Intact. No lesions. MOUTH: Clear. No discharge. THROAT: Clear. No exudate. LUNGS: Clear. No crackles. CARDIAC: S1, S2. No rub. ABDOMEN: Benign. Bowel sounds positive. GENITALIA/RECTUM: Leija absent. BACK/EXTREMITIES: Edema 0+. NEUROLOGICAL: Alert and motor intact. SKIN: LYMPHATICS: LABORATORY DATA: Reviewed. ASSESSMENT AND PLAN: 1. Acute kidney injury with chronic kidney disease, multifactorial. The patient has chronic kidney disease stage 3, which is very advanced kidney disease for a young female. So I would recommend changing the IV fluids to normal saline and also consulting Urology for possible hydronephrosis. The patient's right kidney shows chronic scarring, so the patient could have chronic vesicoureteral reflux. 2. Hypertension, stable. 3. Elevated magnesium level. Continue hydration and use Lasix as needed. 4. Anuria. Use Lasix . All the above findings were discussed with the primary team and the residents as well as other attending physicians. No indication for dialysis at this time. Please note, the patient was seen at 6 p.m. yesterday after a call from Dr. Zamorano. Job ID: [id number]
[2019-04-17 14:14] LABS: Hemoglobin 8.7 g/dL (12.0-16.0)
[2019-04-17] MEDS: Ferrous Sulfate 325 MG TAB PO SCH ×2 (15:42→21:06)
[2019-04-17] MEDS: Docusate Calcium (SURFAK) 240 MG CAP PO SCH ×2 (15:42→21:06)
[2019-04-17] MEDS: Magnesium Sulfate 20 GM in Dextrose 5% in Water 460 ML IV SCH (15:42)
[2019-04-17] MEDS: Prenatal Vitamin 1 TAB PO SCH (15:43)
[2019-04-17] MEDS: Sodium Chloride 0.9% 1,000 ML IV SCH ×2 (15:43→20:54)
[2019-04-17] MEDS: Nitrofurantoin Macrocrystal 50 MG CAP PO SCH ×2 (15:43→21:07)
--- NOTE | 2019-04-17 16:05 | PRG ---
DATE OF SERVICE: SUBJECTIVE: A 19-year-old female being seen for acute kidney injury. The patient denied nausea, vomiting. Or chest pain. OBJECTIVE: CONSTITUTIONAL: On exam, the patient is awake and alert. VITAL SIGNS: Afebrile, pulse 85, breathing 16, and blood pressure 126/74. GENERAL APPEARANCE AND MENTAL STATUS: Fair. HEAD/NECK: Normocephalic. Atraumatic. EYES: EOMI. No deformity. EARS: Clear. No ulcers. NOSE: Intact. No lesions. MOUTH: Clear. No discharge. THROAT: Clear. No exudate. LUNGS: Clear. No crackles. CARDIAC: S1, S2. No rub. ABDOMEN: Benign. Bowel sounds positive. GENITALIA/RECTUM: Leija absent. BACK/EXTREMITIES: Edema 0+. NEUROLOGICAL: Alert and motor intact. SKIN: LYMPHATICS: LABORATORY DATA: Hemoglobin 8.7. Creatinine 2.2. ASSESSMENT AND PLAN: 1. Acute kidney injury with chronic kidney disease, stage 4, most likely due to progressive chronic ischemic nephropathy in the setting of and its underlying stress. Continue hydration. 2. Obstructive uropathy. Management per Urology. 3. Hypertension, stable. 4. Anemia, stable. 5. Hypoalbuminemia. Recommend increased protein intake. 6. Hypermagnesemia, improving. No indication for dialysis at this time. The patient is non-oliguric. Job ID: [id number]
[2019-04-17 17:18] LABS: Hemoglobin 8.5 g/dL (12.0-16.0)
[2019-04-17] MEDS: HYDROcodone/Acetaminophen 5/325 mg Tablet PO PRN (18:12)
--- NOTE | 2019-04-17 20:52 | CON ---
DATE OF CONSULTATION: HISTORY OF PRESENT ILLNESS: Rosalinda Lopez is a 19-year-old female who was delivered by with preeclampsia prior to her delivery. She has apparently chronic kidney disease. She has one small kidney, one kidney with mild hydronephrosis. She dropped her hemoglobin from 11 g on the th to 6.8 g yesterday and 5.6 g this morning. She had 45% bands on her peripheral smear on the and 56% bands on her smear today. She has had 2 CTs yesterday and today that show peritoneal blood. She has no complaints. She is a very poor historian, would not turn off or put down her cellphone while I was talking to her, examining her. She said she feels fine, but just said "don't push on my belly." PAST MEDICAL HISTORY: Remarkable for: 1. Diabetes with marginal compliance with medication. 2. History of elevated blood pressures and proteinuria when followed as an outpatient. 3. History of urinary tract sepsis in 2017 with renal insufficiency noted at that time. She is supposed to be on Macrobid and metformin prior to admission. REVIEW OF SYSTEMS: Otherwise negative. FAMILY HISTORY: Positive for end-stage renal disease. PHYSICAL EXAMINATION: VITAL SIGNS: Blood pressure is 118/59, heart rate is 100, respiratory rate is 18, oximetry is 96%, and temperature is 99.7. HEENT: Pupils are equal. Sclerae are anicteric. NECK: Supple. LUNGS: Clear. HEART: Regular rhythm. ABDOMEN: Soft and tender as expected after . EXTREMITIES: Without asymmetry. LABORATORY DATA: White count 20.3, hemoglobin 5.6 and 8.7 after 2 units of packed cells, platelets 146,000. Acute on chronic kidney disease with renal cortical thinning seen in the right kidney suggesting chronic kidney disease. Her hydronephrosis on the left is persistent on ultrasound on the . Urology is following. Urine culture from yesterday is negative. IMPRESSION: 1. Blood loss anemia. 2. Preeclampsia leading to a . 3. Chronic kidney disease with a renal cortical thinning on the right and hydronephrosis on the left, likely related to her . She has been followed by Urology. Her left shift is a little concerning, but given her recent stresses, she could entirely de-marginate white cells just related to the stress of her illness. This will need to be followed and she becomes febrile. Cultures with empiric broad-antimicrobial therapy would be the next step. Nephrology has been consulted. She is being hydrated with saline. The Macrodantin probably is not doing a lot at this point in time and could be held. We will follow. I would recommend serial H and Hs every 4 hours just to make sure she is not bleeding. Job ID: [id number]
[2019-04-17 21:14] LABS: Hemoglobin 7.3 g/dL (12.0-16.0)
[2019-04-18] MEDS: Acetaminophen 325 MG TAB PO PRN ×2 (00:15→09:33)
[2019-04-18 01:21] LABS: Hemoglobin 7.8 g/dL (12.0-16.0)
[2019-04-18] MEDS: Sodium Chloride 0.9% 1,000 ML IV SCH ×2 (05:05→13:21)
[2019-04-18 05:48] LABS: Hemoglobin 7.4 g/dL (12.0-16.0)
[2019-04-18 07:43] LABS: Anion Gap 15 mmol/L (10-20); BUN (Urea Nitrogen) 33 mg/dL (7.0-18.7); Calc. Creatinine Clearance 39 mL/min (70-130); Calcium 8.4 mg/dL (7.8-10.44); Carbon Dioxide 19 mmol/L (22-29); Chloride 111 mmol/L (98-107); Estimated GFR-MDRD 28; Glucose 96 mg/dL (70-105); Potassium 4.5 mmol/L (3.5-5.1); Sodium 140 mmol/L (136-145)
--- NOTE | 2019-04-18 08:32 | PRG ---
DATE OF SERVICE: 04/18/2019 OBJECTIVE AND SUBJECTIVE: The patient is alert and awake. Does not appear to be in acute distress. Vital signs are T-max of 100.2, T current 98, blood pressure 132/86. I's and O's 2589 out. Urine output 4980. Urine output is dilute yellow. She is negative 2.3 L. LABORATORY DATA: Hemoglobin this morning is 7.4. There is no BMP profile ordered for this morning. IMPRESSION AND PLAN: 1. A 19-year-old female, 1, para 1, postoperative day #2 status post due to preeclampsia, proteinuria. Urologic consultation initially obtained due to left hydronephrosis, with decreased urine output. This has resolved. Moreover, transvaginal abdominal ultrasound performed yesterday at bedside demonstrates bilateral efflux. Continue medical management, the patient in ICU due to postoperative anemia. 2. History of Escherichia coli urinary tract infection few years ago. This warrants outpatient workup. Continue indwelling Leija catheter for now. will follow. Job ID: [id number] [facility]
[2019-04-18 09:03] LABS: Hemoglobin 8.5 g/dL (12.0-16.0); Mean Corpuscular HGB CONC 34.6 g/dL (32.0-36.0); Mean Corpuscular Hemoglobin 31.4 pg (27.0-31.0); Mean Corpuscular Volume 90.8 fL (78.0-98.0); Platelet Count 212 thou/uL (130-400); RBC Distribution Width 13.5 % (11.5-14.5); Red Blood Cell (RBC) Count 2.71 mill/uL (4.20-5.40); White Blood Cell (WBC) Count 21.4 thou/uL (4.8-10.8)
[2019-04-18 09:18] LABS: ALT (SGPT) 14 U/L (8-55); AST (SGOT) 22 U/L (5-34); Albumin 2.5 g/dL (3.5-5.0); Alkaline Phosphatase 241 U/L (40-110); Anion Gap 15 mmol/L (10-20); BUN (Urea Nitrogen) 33 mg/dL (7.0-18.7); Bilirubin, Total 0.7 mg/dL (0.2-1.2); Calc. Creatinine Clearance 39 mL/min (70-130); Calcium 8.8 mg/dL (7.8-10.44); Carbon Dioxide 18 mmol/L (22-29); Chloride 111 mmol/L (98-107); Estimated GFR-MDRD 29; Globulin 3.2 g/dL (2.4-3.5); Glucose 104 mg/dL (70-105); Potassium 4.4 mmol/L (3.5-5.1); Protein, Total 5.7 g/dL (6.0-8.3); Sodium 140 mmol/L (136-145)
[2019-04-18] MEDS: Docusate Calcium (SURFAK) 240 MG CAP PO SCH (09:52)
[2019-04-18] MEDS: Prenatal Vitamin 1 TAB PO SCH ×2 (09:58→10:43)
[2019-04-18] MEDS: Ferrous Sulfate 325 MG TAB PO SCH ×2 (09:58→10:43)
[2019-04-18 10:11] LABS: Band 17 % (5-11); Lymphocytes 10 % (21-51); MDiff Complete? YES; Monocytes 2 % (0-10); Myelocyte 1 % (0-0); Neutrophil 70 % (42-75); Polychromasia SLIGHT = 2-3 cells (100X) (0-2/hpf)
[2019-04-18] MEDS: Acetaminophen/Codeine 30-300mg Tablet PO PRN ×2 (12:04→18:39)
--- NOTE | 2019-04-18 12:22 | PRG ---
DATE OF SERVICE: 04/18/2019 SUBJECTIVE: Rosalinda Lopez has no complaints. Her hemodynamics have been stable. OBJECTIVE: LUNGS: Clear. HEART: Regular rhythm. ABDOMEN: Still distended. After , it is nontender. EXTREMITIES: Without edema. LABORATORY DATA: White count 21.4. Her band count is down to 17% today. She did have 1% myelocytes on her peripheral smear, but I suspect that this is an acute phase reaction to her critical illness. Hemoglobin is 8.5 on her CBC for the manual differential. Electrolytes are normal. Creatinine is stable at 2.14. Magnesium is down to 4.1 last night. IMPRESSION: 1. Peripartum hemorrhage. 2. Preeclampsia. 3. Status post section. 4. Left shift with no clinical indication of an acute infectious process. This will need to be followed after she moves out of critical care unit. At this point in time, she is stable from a critical care standpoint. She is stable to move out of critical care unit. We will sign off. Job ID: [id number]
--- NOTE | 2019-04-18 12:46 | PRG ---
DATE OF SERVICE: 04/18/2019 SUBJECTIVE: Patient was seen and examined at bedside and overnight events noted. Patient denies any shortness of breath or chest pain or palpitation. No history of nausea or vomiting or diarrhea or fever or chills or cramps. OBJECTIVE: GENERAL: This is a well-built female, in no apparent distress. VITAL SIGNS: Temperature 98.7. Heart rate 97. Respiratory rate 22. Blood pressure 140/78. HEENT: Atraumatic, normocephalic. Oral mucosa is moist NECK: Supple. CARDIOVASCULAR: S1, S2 heard. Rate and rhythm regular. RESPIRATORY: Clear to auscultation. GASTROINTESTINAL: Abdomen is soft. MUSCULOSKELETAL: No tenderness. No edema. DERMATOLOGIC: No skin rash. NEUROLOGIC: Alert and awake and oriented X3. No focal neurologic deficits. Moving all the extremities. PSYCHIATRIC: Mood and affect normal. LABORATORY DATA: Potassium 4.4, BUN is 33, creatinine is 2.14. ASSESSMENT AND PLAN: 1. Acute kidney injury on chronic kidney disease stage 3 with a renal function seems to be stable. She is making a lot of urine. We will monitor. 2. Proteinuria. 3. Obstructive uropathy. Follow up with Urology. 4. Hypertension. 5. Anemia. 6. Hypoalbuminemia. Avoid nephrotoxins and we will monitor. We will reduce IV fluids 75 mL/h. We will follow. Job ID: [id number]
[2019-04-19] MEDS: Docusate Calcium (SURFAK) 240 MG CAP PO SCH ×3 (01:21→21:14)
[2019-04-19] MEDS: Ferrous Sulfate 325 MG TAB PO SCH ×3 (01:21→21:14)
[2019-04-19] MEDS: Acetaminophen/Codeine 30-300mg Tablet PO PRN ×2 (06:14→10:41)
--- NOTE | 2019-04-19 07:48 | PRG ---
DATE OF SERVICE: 04/19/2019 SUBJECTIVE: The patient without complaints. Alert and awake. OBJECTIVE: VITAL SIGNS: Stable. She is afebrile. I's and O's 2530 in, 5 L out. She is negative 2.5 L. LABORATORY DATA: AM labs pending. Creatinine yesterday is 2.1. Urine culture negative. IMPRESSION: 1. Ms. Lopez is a 19-year-old female, G1, P1, status post section secondary to proteinuria, concern for preeclampsia, history of an oliguria, with left hydronephrosis, likely due to physiologic hydronephrosis of . Abdominal transvaginal ultrasound demonstrated bilateral efflux. Her oliguria has resolved with observation. 2. Renal insufficiency. 3. History of Escherichia coli urinary tract infection, urosepsis few years ago. 4. Nonobstructing right punctate renal lithiasis. Discontinue Leija. The patient maybe incontinent due to high urine output. Monitor BMP, potassium, magnesium also needs to be monitored. As an outpatient. will work her up for possible vesicoureteral reflux. This is not indicated at this time. Job ID: [id number] [facility]
[2019-04-19] MEDS: Prenatal Vitamin 1 TAB PO SCH (08:19)
[2019-04-19 08:25] LABS: Hemoglobin 8.6 g/dL (12.0-16.0); Mean Corpuscular HGB CONC 34.9 g/dL (32.0-36.0); Mean Corpuscular Hemoglobin 31.4 pg (27.0-31.0); Mean Corpuscular Volume 90.1 fL (78.0-98.0); Mean Platelet Volume 7.3 fL (7.4-10.4); Platelet Count 242 thou/uL (130-400); RBC Distribution Width 13.3 % (11.5-14.5); Red Blood Cell (RBC) Count 2.74 mill/uL (4.20-5.40); White Blood Cell (WBC) Count 19.8 thou/uL (4.8-10.8)
[2019-04-19 08:50] LABS: ALT (SGPT) 12 U/L (8-55); AST (SGOT) 24 U/L (5-34); Albumin 2.4 g/dL (3.5-5.0); Alkaline Phosphatase 238 U/L (40-110); Anion Gap 16 mmol/L (10-20); BUN (Urea Nitrogen) 26 mg/dL (7.0-18.7); Bilirubin, Total 0.5 mg/dL (0.2-1.2); Calc. Creatinine Clearance 47 mL/min (70-130); Carbon Dioxide 19 mmol/L (22-29); Chloride 104 mmol/L (98-107); Estimated GFR-MDRD 36; Globulin 3.2 g/dL (2.4-3.5); Glucose 119 mg/dL (70-105); Potassium 4.8 mmol/L (3.5-5.1); Protein, Total 5.6 g/dL (6.0-8.3); Sodium 134 mmol/L (136-145)
[2019-04-19 08:57] LABS: Band 38 % (5-11); Lymphocytes 9 % (21-51); MDiff Complete? YES; Metamyelocyte 1 % (0-0); Monocytes 3 % (0-10); Myelocyte 1 % (0-0); Neutrophil 48 % (42-75); Platelet Morphology Comment Appears Adequate; Polychromasia SLIGHT = 2-3 cells (100X) (0-2/hpf)
--- NOTE | 2019-04-19 17:07 | PRG ---
DATE OF SERVICE: 04/19/2019 SUBJECTIVE: Patient was seen and examined at bedside and overnight events noted. Patient denies any shortness of breath or chest pain or palpitation. No history of nausea or vomiting or diarrhea or fever or chills or cramps. OBJECTIVE: GENERAL: This is a well-built female, in no apparent distress. VITAL SIGNS: Temperature 98.4. Heart rate 93. Respiratory rate 20. Blood pressure 136/84. HEENT: Atraumatic, normocephalic. Oral mucosa is moist NECK: Supple. CARDIOVASCULAR: S1, S2 heard. Rate and rhythm regular. RESPIRATORY: Clear to auscultation. GASTROINTESTINAL: Abdomen is soft. MUSCULOSKELETAL: No tenderness. No edema. DERMATOLOGIC: No skin rash. NEUROLOGIC: Alert and awake and oriented X3. No focal neurologic deficits. Moving all the extremities. PSYCHIATRIC: Mood and affect normal. LABORATORY DATA: Potassium 4.8, BUN is 26, creatinine is 1.78. ASSESSMENT AND PLAN: 1. Acute kidney injury, getting better. Chronic kidney disease, stage 3, monitor. 2. Proteinuria. The patient was advised to follow with Dr. Okeefe as outpatient. 3. Obstructive uropathy, monitor. 4. Hypertension. 5. Anemia. 6. Hypoalbuminemia. 7. Creatinine is better. Avoid nephrotoxins and need close followup as outpatient. She is at high risk for chronic complications. Need to repeat proteinuria workup . Job ID: [id number]
[2019-04-19] MEDS: HYDROcodone/Acetaminophen 5/325 mg Tablet PO PRN (17:53)
[2019-04-19] MEDS ORDERED: hydrALAZINE 25 MG TAB PO SCH (18:45)
[2019-04-19] MEDS ORDERED: Milk Of Magnesia 30 ML UDCUP PO SCH (20:00)
[2019-04-20] MEDS: HYDROcodone/Acetaminophen 5/325 mg Tablet PO PRN ×4 (02:02→21:14)
[2019-04-20] MEDS: hydrALAZINE 25 MG TAB PO SCH ×3 (05:53→21:13)
--- NOTE | 2019-04-20 08:09 | PRG ---
DATE OF SERVICE: 04/20/2019 SUBJECTIVE: The patient without complaints, and a.m. labs not yet finalized. The patient without complaints, her urine output is 3900 mL. White count yesterday is 19, hemoglobin 8.6. Creatinine yesterday is 1.7. Highest creatinine on this admission is 2.2. IMPRESSION AND PLAN: 1. A 19-year-old female, status post section. 2. History of oliguria, resolved, currently with polyuria, renal insufficiency. 3. History of Escherichia coli urinary tract infection, urosepsis in 2017. 4. History of nonobstructing right punctate renal lithiasis. Monitor BMP. From urologic perspective, if her creatinine is stable, we will sign off. The patient can follow up with me as an outpatient in few weeks. Elective workup for [facility], which I would prefer in few months as she is . No need for prophylactic antibiotic from urologic perspective. Job ID: [id number]
[2019-04-20] MEDS: Ferrous Sulfate 325 MG TAB PO SCH ×2 (09:04→21:14)
[2019-04-20] MEDS: Prenatal Vitamin 1 TAB PO SCH (09:05)
[2019-04-20] MEDS: Docusate Calcium (SURFAK) 240 MG CAP PO SCH ×2 (09:05→21:14)
[2019-04-20 09:17] LABS: ALT (SGPT) 14 U/L (8-55); AST (SGOT) 21 U/L (5-34); Albumin 2.8 g/dL (3.5-5.0); Alkaline Phosphatase 270 U/L (40-110); Anion Gap 15 mmol/L (10-20); BUN (Urea Nitrogen) 27 mg/dL (7.0-18.7); Bilirubin, Total 0.7 mg/dL (0.2-1.2); Calc. Creatinine Clearance 49 mL/min (70-130); Calcium 9.6 mg/dL (7.8-10.44); Carbon Dioxide 25 mmol/L (22-29); Chloride 100 mmol/L (98-107); Estimated GFR-MDRD 38; Globulin 3.5 g/dL (2.4-3.5); Glucose 103 mg/dL (70-105); Potassium 4.6 mmol/L (3.5-5.1); Protein, Total 6.3 g/dL (6.0-8.3); Sodium 135 mmol/L (136-145)
--- NOTE | 2019-04-20 11:15 | PRG ---
DATE OF SERVICE: 04/20/2019 SUBJECTIVE: Patient was seen and examined at bedside and overnight events noted. Patient denies any shortness of breath or chest pain or palpitation. No history of nausea or vomiting or diarrhea or fever or chills or cramps. OBJECTIVE: GENERAL: This is a well-built female, in no apparent distress. VITAL SIGNS: Temperature 98.3. Heart rate 109. Respiratory rate 20. Blood pressure 138/89. HEENT: Atraumatic, normocephalic. Oral mucosa is moist NECK: Supple. CARDIOVASCULAR: S1, S2 heard. Rate and rhythm regular. RESPIRATORY: Clear to auscultation. GASTROINTESTINAL: Abdomen is soft. MUSCULOSKELETAL: No tenderness. No edema. DERMATOLOGIC: No skin rash. NEUROLOGIC: Alert and awake and oriented X3. No focal neurologic deficits. Moving all the extremities. PSYCHIATRIC: Mood and affect normal. LABORATORY DATA: Potassium 4.6, BUN is 27, creatinine is 1.7. ASSESSMENT AND PLAN: 1. Acute kidney injury, much better. 2. Chronic kidney disease, stage 3. 3. Proteinuria. 4. Obstructive uropathy. 5. Hypoalbuminemia. 6. Creatinine is better. Avoid nephrotoxins. 7. Close followup as outpatient. Job ID: [id number]
--- NOTE | 2019-04-20 18:32 | RAD ---
XR Chest Pa Lat STANDARD HISTORY: Fever COMPARISON: None FINDINGS: The heart size is normal. The lungs are well expanded without focal areas of consolidation, pneumothorax or pleural effusions. There is a plate of linear atelectasis in the left midlung. IMPRESSION: No evidence of pneumonia.
[2019-04-20 19:25] LABS: Hemoglobin 10.2 g/dL (12.0-16.0); Mean Corpuscular HGB CONC 33.6 g/dL (32.0-36.0); Mean Corpuscular Hemoglobin 30.5 pg (27.0-31.0); Mean Platelet Volume 7.1 fL (7.4-10.4); Platelet Count 363 thou/uL (130-400); RBC Distribution Width 13.2 % (11.5-14.5); Red Blood Cell (RBC) Count 3.36 mill/uL (4.20-5.40); White Blood Cell (WBC) Count 22.2 thou/uL (4.8-10.8)
[2019-04-20 19:55] LABS: Anisocytosis SLIGHT = 6-15 cells (100X) (0-5/hpf); Band 34 % (5-11); Eosinophils 1 % (0-10); Lymphocytes 5 % (21-51); MDiff Complete? YES; Metamyelocyte 2 % (0-0); Monocytes 3 % (0-10); Myelocyte 2 % (0-0); Neutrophil 48 % (42-75); Platelet Morphology Comment Appears Adequate; Polychromasia MODERATE = 3-4 cells (100X) (0-2/hpf); Reactive Lymphocytes 5 % (0-10); Target Cells SLIGHT = 2-5 cells (100X) (0-1/hpf); Tear Drops SLIGHT = 2-5 cells (100X) (0-1/hpf)
[2019-04-20] MEDS ORDERED: cefTRIAXone\\ROCEPHIN 1 GM in Sodium Chloride 0.9% 100 ML IVPB SCH (20:00)
[2019-04-20] MEDS ORDERED: cefTRIAXone\\ROCEPHIN 1 GM VIAL IM SCH (20:15)
[2019-04-20] MEDS ORDERED: Lidocaine 1% PF 5 ML VIAL FS SCH (20:15)
[2019-04-20] MEDS: Lidocaine 1% MPF 2 ML VIAL FS SCH (21:12)
[2019-04-20] MEDS ORDERED: Cephalexin 250 MG CAP PO SCH (22:00)
[2019-04-21] MEDS: Lidocaine 1% MPF 2 ML VIAL FS SCH (00:04)
[2019-04-21 06:34] LABS: Hemoglobin 9.3 g/dL (12.0-16.0); Mean Corpuscular HGB CONC 34.8 g/dL (32.0-36.0); Mean Corpuscular Volume 88.9 fL (78.0-98.0); Mean Platelet Volume 6.4 fL (7.4-10.4); Platelet Count 299 thou/uL (130-400); RBC Distribution Width 12.9 % (11.5-14.5); Red Blood Cell (RBC) Count 3.01 mill/uL (4.20-5.40)
[2019-04-21] MEDS: hydrALAZINE 25 MG TAB PO SCH ×3 (06:34→21:21)
[2019-04-21] MEDS: Acetaminophen 325 MG TAB PO PRN ×2 (06:34→19:52)
[2019-04-21 06:53] LABS: ALT (SGPT) 20 U/L (8-55); AST (SGOT) 25 U/L (5-34); Albumin 2.7 g/dL (3.5-5.0); Alkaline Phosphatase 238 U/L (40-110); Anion Gap 13 mmol/L (10-20); BUN (Urea Nitrogen) 30 mg/dL (7.0-18.7); Bilirubin, Total 0.6 mg/dL (0.2-1.2); Calc. Creatinine Clearance 49 mL/min (70-130); Calcium 9.6 mg/dL (7.8-10.44); Carbon Dioxide 26 mmol/L (22-29); Chloride 101 mmol/L (98-107); Estimated GFR-MDRD 38; Globulin 3.4 g/dL (2.4-3.5); Glucose 107 mg/dL (70-105); Potassium 4.6 mmol/L (3.5-5.1); Protein, Total 6.1 g/dL (6.0-8.3); Sodium 135 mmol/L (136-145)
[2019-04-21 08:17] LABS: Band 18 % (5-11); Eosinophils 1 % (0-10); Lymphocytes 5 % (21-51); MDiff Complete? YES; Metamyelocyte 2 % (0-0); Monocytes 2 % (0-10); Myelocyte 1 % (0-0); Neutrophil 71 % (42-75); Platelet Morphology Comment Appears Adequate; Polychromasia SLIGHT = 2-3 cells (100X) (0-2/hpf)
[2019-04-21] MEDS: Ferrous Sulfate 325 MG TAB PO SCH ×2 (09:36→19:52)
[2019-04-21] MEDS: Prenatal Vitamin 1 TAB PO SCH (09:36)
[2019-04-21] MEDS: Docusate Calcium (SURFAK) 240 MG CAP PO SCH ×2 (09:36→19:52)
--- NOTE | 2019-04-21 09:40 | CT ---
EXAM: CT Abdomen Pelvis WO Con PROVIDED CLINICAL HISTORY: Postoperative fever. Patient is since 04/16/2019. COMPARISON: 04/17/2019 FINDINGS: Evaluation of the vascular structures and parenchymal organs is limited secondary to the lack of intr avenous contrast. Bibasilar atelectasis is present. A nonobstructing superior pole right renal calculus is again seen. Mild left-sided hydronephrosis is present with caliectasis on the right. These findings do appear mildly improved when compared to the prior study. The liver, spleen, pancreas, and bilateral adrenal glands demonstrate grossly normal nonenhanced CT a ppearance. There is gas is present urinary bladder which could be related to recent catheterization. Clinical correlation is suggested. The uterus remains enlarged likely due to state. Again noted is heterogeneity within the e xpected location of the endometrial canal with increased density material as well as multiple gas foci seen within the endometrial canal. Increased density material is most compatible with hemorrhage within the endometrial canal. Additional heterogeneity is likely due to state and recent section. Endometritis cannot be excluded based on CT evaluation. Fluid and hemorrhage inferior to the right hepatic lobe does appear improved. There is persistent hyp erdense as well as low-density material seen in the pelvis and adjacent to the uterus suggesting hemorrhage which is not significantly changed when compared to the prior exam although may be mildly improved in the lower pelvis. There has been improvement in subcutaneous emphysema. Horizontally oriented skin clips with adjacent stranding in the lower pelvis is again seen related to patient's prior section. Gas within the anterolateral pelvis bilaterally has improved. No dilated loops of small bowel are seen. No newly developed fluid collection is appreciated on this exam. A small to moderate amount of retained fecal material is seen throughout the colon suggesting constip ation. No other interval change. IMPRESSION: 1. Findings which are again compatible with patient's recent section. Hemorrhage and fluid w ithin the pelvis is again seen. The degree of hemorrhage is overall similar to prior study to slightly improved with slight decrease in fluid adjacent to the inferior aspect right hepatic lobe an d in the lower posterior pelvis. 2. Improvement in subcutaneous emphysema. There has also been improvement in gas within the anterolat eral aspect of the pelvis bilaterally. 3. Stable enlargement of the uterus related to state. There is heterogeneous material with areas of increased density as well as foci of gas seen within the endometrial canal extending into the region of the endocervical canal. Findings are probably secondary to postoperative changes, but e ndometritis cannot be excluded based on this exam. 4. No new fluid collection is appreciated. 5. Stable nonobstructing right renal calculus. 6. Stable mild left hydronephrosis. However, the degree of calyceal dilatation has improved. Calyceal dilatation is likely related to the enlarged uterus and distended urinary bladder.
[2019-04-21] MEDS: metroNIDAZOLE 500 MG in Premix Bag 1 BAG IVPB SCH ×2 (09:53→19:59)
--- NOTE | 2019-04-21 11:30 | PRG ---
DATE OF SERVICE: 04/21/2019 SUBJECTIVE: Patient was seen and examined at bedside and overnight events noted. Patient denies any shortness of breath or chest pain or palpitation. No history of nausea or vomiting or diarrhea or fever or chills or cramps. OBJECTIVE: GENERAL: This is a well-built female, in no apparent distress. VITAL SIGNS: Temperature 98.4. Heart rate 120. Respiratory rate 20. Blood pressure 121/75. HEENT: Atraumatic, normocephalic. Oral mucosa is moist NECK: Supple. CARDIOVASCULAR: S1, S2 heard. Rate and rhythm regular. RESPIRATORY: Clear to auscultation. GASTROINTESTINAL: Abdomen is soft. MUSCULOSKELETAL: No tenderness. No edema. DERMATOLOGIC: No skin rash. NEUROLOGIC: Alert and awake and oriented X3. No focal neurologic deficits. Moving all the extremities. PSYCHIATRIC: Mood and affect normal. LABORATORY DATA: Potassium 4.6, BUN is 30, creatinine is 1.7. ASSESSMENT AND PLAN: 1. Acute kidney injury on chronic kidney disease stage 3. Renal function is better and close to baseline. 2. Proteinuria. Need close followup as outpatient. 3. Obstructive uropathy. Follow up with urology. 4. Hypoalbuminemia. 5. Edema, controlled. 6. Hyponatremia. 7. Anemia of chronic disease. 8. Avoid nephrotoxins. We will monitor renal function. We will follow. Job ID: [id number]
[2019-04-21] MEDS: HYDROcodone/Acetaminophen 5/325 mg Tablet PO PRN ×2 (11:32→19:53)
--- NOTE | 2019-04-21 18:42 | ULT ---
EXAM: Bilateral lower extremity venous Doppler US HISTORY: bilateral lower extremity edema and pain FINDINGS: Grayscale, color-flow, Doppler evaluation, spectral analysis of the bilateral lower extremities venou s structures is performed with 2-D imaging. The bilateral common femoral, superficial femoral, popliteal, posterior tibial, proximal greater saphenous and profunda femoral veins are imaged. There is normal luminal compressibility, flow, and augmentation in the visualized deep venous structu res of the bilateral lower extremities. IMPRESSION: No evidence of a deep vein thrombosis in either lower extremity.
[2019-04-21] MEDS ORDERED: cefTRIAXone\\ROCEPHIN 1 GM in Sodium Chloride 0.9% 100 ML IVPB SCH (21:00)
[2019-04-22] MEDS: hydrALAZINE 25 MG TAB PO SCH ×3 (05:38→22:38)
[2019-04-22 06:24] LABS: ALT (SGPT) 18 U/L (8-55); AST (SGOT) 21 U/L (5-34); Albumin 2.8 g/dL (3.5-5.0); Alkaline Phosphatase 243 U/L (40-110); Anion Gap 19 mmol/L (10-20); BUN (Urea Nitrogen) 31 mg/dL (7.0-18.7); Bilirubin, Total 0.6 mg/dL (0.2-1.2); Calc. Creatinine Clearance 50 mL/min (70-130); Calcium 9.8 mg/dL (7.8-10.44); Carbon Dioxide 20 mmol/L (22-29); Chloride 100 mmol/L (98-107); Estimated GFR-MDRD 39; Globulin 3.7 g/dL (2.4-3.5); Glucose 114 mg/dL (70-105); Potassium 3.8 mmol/L (3.5-5.1); Protein, Total 6.5 g/dL (6.0-8.3); Sodium 135 mmol/L (136-145)
[2019-04-22] MEDS: Sodium Chloride 0.9% 1,000 ML IV SCH (07:12)
[2019-04-22] MEDS: metroNIDAZOLE 500 MG in Premix Bag 1 BAG IVPB SCH (07:55)
[2019-04-22] MEDS: Docusate Calcium (SURFAK) 240 MG CAP PO SCH ×2 (07:57→21:19)
[2019-04-22] MEDS: Prenatal Vitamin 1 TAB PO SCH (07:58)
[2019-04-22] MEDS: Ferrous Sulfate 325 MG TAB PO SCH ×2 (07:58→21:19)
[2019-04-22] MEDS: MEROPENEM 1 GM/50 ML 1 GM in Premix Bag 1 BAG IVPB SCH (11:43)
--- NOTE | 2019-04-22 12:25 | PRG ---
DATE OF SERVICE: 04/22/2019 SUBJECTIVE: Patient was seen and examined at bedside and overnight events noted. Patient denies any shortness of breath or chest pain or palpitation. No history of nausea or vomiting or diarrhea or fever or chills or cramps. OBJECTIVE: GENERAL: This is a well-built female, in no apparent distress. VITAL SIGNS: Temperature 99.5. Heart rate 124. Respiratory rate 20. Blood pressure 120/70. HEENT: Atraumatic, normocephalic. Oral mucosa is moist. NECK: Supple. CARDIOVASCULAR: S1, S2 heard. Rate and rhythm regular. RESPIRATORY: Clear to auscultation. GASTROINTESTINAL: Abdomen is soft. MUSCULOSKELETAL: No tenderness. No edema. DERMATOLOGIC: No skin rash. NEUROLOGIC: Alert and awake and oriented x3. No focal neurologic deficits. Moving all the extremities. PSYCHIATRIC: Mood and affect normal. LABORATORY DATA: Potassium 3.8, BUN is 31, and creatinine is 1.67. ASSESSMENT AND PLAN: 1. Acute kidney injury, much better. 2. Chronic kidney disease, stage 3. 3. Proteinuria. 4. Urinary tract infection. 5. Edema. 6. Hyponatremia. 7. Anemia of chronic disease. Renal function is stable. Job ID: [id number]
--- NOTE | 2019-04-22 16:00 | CON ---
DATE OF CONSULTATION: 04/22/2019 REASON FOR CONSULTATION: Complications following a with fever and leukocytosis. HISTORY OF PRESENT ILLNESS: A 19-year-old who has a history of renal insufficiency and 38 weeks gestation with proteinuria and gestational diabetes. She was initially seen by Dr. Lui because of elevated blood pressure and proteinuria noticed in the office. The patient was given IV fluids and serial blood pressures were monitored. The patient was kept on Macrodantin and renal ultrasound was completed and it showed a relatively small right kidney with no obstruction and moderate to severe left-sided hydronephrosis with prominent dilation of proximal left ureter. It was observed that typically in , the right side is more commonly affected by this finding, which would raise the possibility of an alternate problem. So decision was made for induction of labor on April 15. The meconium was detected. On the , the patient had a low transverse section by Dr. Zamornao. The procedure was reviewed and nothing appeared to be out of the ordinary process. On April 17, there was a decrease in the hemoglobin to 5.6, platelets were normal. Creatinine went up to 2.29. The patient had a pelvic transvaginal ultrasound which showed limited visualization of urinary bladder. Both ureteral jets were visualized. An abdomen and pelvis CT was completed and it showed free fluid in the left upper quadrant, bilateral paracolic gutters, intermixed areas of hyperdensity consistent with extensive hemoperitoneum. A stable hematoma within the pelvis measuring 9 x 3.6 cm. Consultation with Urology was obtained and Dr. Vega noticed improvement in urine output. No surgical intervention was recommended at the time. Dr. Okeefe was consulted and his impression was acute on chronic kidney disease, multifactorial. Some changes were made on the IV fluids. Pulmonary consultation was obtained and this was mostly concerning the changes in the peripheral blood picture. A venogram did not demonstrate any evidence of deep vein thrombosis. Throughout the hospital stay, there was a persistence of leukocytosis with worsening up to 26,000 yesterday. This was associated with bandemia which peaked at 38% and now is down to 18%. Currently, Ms. Lopez is awake. She appears to be concerned particularly with going home. Apparently, her child is at home. She denies any headaches. No visual symptoms. No shortness of breath or chest pain. She does have a moderate to severe lower abdominal tenderness. She is voiding without difficulty. She is able to move extremities well. PAST MEDICAL HISTORY: There is a history of urinary infection in 2017 with sepsis reportedly and chronic renal insufficiency of unclear etiology. She may have vesicoureteral reflux with chronic pyelonephritis, but that is not clarified in the history. PAST SURGICAL HISTORY: Adenoidectomy and tympanostomy tubes. SOCIAL HISTORY: Never smoker. She lives in the area with a boyfriend. Apparently, she is estranged from her father. Does not have a lot a family support. FAMILY HISTORY: Includes diabetes mellitus type 2 and some form of renal insufficiency. ALLERGIES: NONE. CURRENT MEDICATIONS: She had been on 1. Rocephin. 2. Flagyl. 3. Tylenol. 4. Dulcolax. 5. Benadryl. PHYSICAL EXAMINATION: VITAL SIGNS: T-max 101.2. She was 101.4 the day before. BP 120/80, pulse 113, respirations 20, O2 saturation 98. GENERAL: She is thin. Does not appear in distress. Ocular movements conjugate. No lymphadenopathy. The incision appears normal. NECK: Supple. No jugular vein distention. LUNGS: Symmetric air entry. HEART: S1-S2 regular rate. No S3 or S4. ABDOMEN: Soft with tenderness which is marked in the lower abdominal area in the suprapubic region. This tenderness is to palpation and as well as percussion. EXTREMITY: There is no joint inflammatory activity. No edema. Pulses 1+ in dorsalis pedis. She moves extremities equally. NEURO: She is awake, oriented, follows commands. LABORATORY DATA: White cell count is up to 26,000, hemoglobin 9.3, platelets 299, 18% bands, 71% neutrophils. Sodium 135, creatinine 1.67. Liver profile with normal transaminases and bilirubin. Alkaline phosphatase as expected moderately elevated. Albumin is down to 2.8. Urinalysis with normal findings from April 16 and hepatitis surface antigen, syphilis antibody testing negative. Microbiology, have one urine sample with low numbers of group G strep. This is of clean-catch and probably represents contamination of the sample. The two sets of blood cultures , no growth at 48 hours. Urine culture no growth at 48 hours as well. Pathology of the placenta was not particularly remarkable. There was evidence of meconium staining. ASSESSMENT: 1. History of prior urinary tract infection, possible vesicoureteral ureteral reflux with chronic renal insufficiency, gestational diabetes, hydronephrosis. 2. Hematoma in the abdominal area as well as in the pelvic region with tenderness on palpation as well as hemoperitoneum 3. Neutrophilia with bandemia. 4. Fever. DISCUSSION: The differential diagnosis includes infected hematoma with the usual pathogens including Staphylococcus aureus/MRSA, gram negatives including resistant gram negatives, anaerobes and streptococci as well as mycoplasma species. Hematomas can cause fever without superimposed infection, but she does have persistence of neutrophilia with bandemia, until proven otherwise, we have to treat this is as an infected process. The urinary tract infection with pyelonephritis is not ruled out but appears to be less likely in view of the normal urinalysis. An auto-immune process as well as microangiopathy with hemolysis are not apparent. At this point, we will transition to a broad-spectrum coverage to include MDRO's in the coverage and observe clinical response. May need follow up imaging studies. The endpoint here would be improvement and resolution of the pain as well as improvement of the neutrophil count and differential. Once there is improvement, then transition to oral antimicrobial therapy would be attempted in preparation for discharge planning. Job ID: [id number] [facility]
[2019-04-22] MEDS ORDERED: Meropenem 1 GM in Sodium Chloride 0.9% 100 ML IVPB SCH (21:00)
[2019-04-22] MEDS: Doxycycline 100 MG CAP PO SCH (21:20)
[2019-04-22] MEDS: Linezolid 600 MG in Premix Bag 1 BAG IVPB SCH (21:20)
[2019-04-23] MEDS: MEROPENEM 1 GM/50 ML 1 GM in Premix Bag 1 BAG IVPB SCH ×2 (01:22→11:50)
[2019-04-23] MEDS: hydrALAZINE 25 MG TAB PO SCH ×3 (05:53→21:22)
--- NOTE | 2019-04-23 05:59 | PDOC.PP ---
Post Progress Note Post Day #: 6 Subjective: States feeling ok PO intake tolerated: yes Flatus: yes Ambulation: yes Vital Signs (12 hours) Temp Pulse Resp BP BP Pulse Ox 04/23/19 05:53 124 H 118/68 04/23/19 00:30 99.4 F 128 H 28 H 127/79 98 04/22/19 22:38 128 H 129/74 04/22/19 19:10 98 04/22/19 19:06 99.1 F 128 H 20 128/74 98 Weight Weight 132 lb Most Recent Monitor Data Heart Rate from ECG 104 NIBP 162/108 NIBP BP-Mean 126 Respiration from ECG 29 SpO2 98 Last temp was 100.4 on 04/21/19 at 1919 - Physical Examination General: NAD Cardiovascular: no m/r/g Abdominal: + bowel sounds, no distention, appropriately TTP Extremities: negative homans (B) Skin: CS incision dry & intact (tim in use...C/D/I) Neurological: no gross focal deficits Psychiatric: A&Ox3, normal affect Result Diagrams: 04/21/19 06:25 04/22/19 05:35 Additional Labs: Post Labs Blood Type O POSITIVE 04/14/19 12:47 Hep Bs Antigen Non-Reactive S/CO (NonReactive) 04/14/19 12:47 (1) delivery delivered Code(s): O82 - ENCOUNTER FOR DELIVERY WITHOUT INDICATION Status: Acute (2) Chronic kidney failure Status: Acute (3) Peritoneal hematoma Code(s): S36.81XA - INJURY OF PERITONEUM, INITIAL ENCOUNTER Status: Acute - Assessment/Plan Plan: 1. Renal: stable 2. fever: ID following. ABX are Linezoid, meropenem, po doxy. Last temp was 2/ 20 pm...I discussed with her continued IV ABX until 48 hrs afebrile and then plan meds per ID. 3. Pelvic hematoma: just follow clinically: abd soft and nonsurgical 4. Labs: CBC and CMP pending this AM
[2019-04-23 06:40] LABS: Hemoglobin 9.9 g/dL (12.0-16.0); Mean Corpuscular HGB CONC 34.9 g/dL (32.0-36.0); Mean Corpuscular Hemoglobin 31.2 pg (27.0-31.0); Mean Corpuscular Volume 89.5 fL (78.0-98.0); Mean Platelet Volume 6.5 fL (7.4-10.4); Platelet Count 518 thou/uL (130-400); RBC Distribution Width 13.2 % (11.5-14.5); Red Blood Cell (RBC) Count 3.15 mill/uL (4.20-5.40); White Blood Cell (WBC) Count 32.1 thou/uL (4.8-10.8)
[2019-04-23 06:49] LABS: Anion Gap 15 mmol/L (10-20); BUN (Urea Nitrogen) 28 mg/dL (7.0-18.7); Calc. Creatinine Clearance 57 mL/min (70-130); Calcium 9.6 mg/dL (7.8-10.44); Carbon Dioxide 21 mmol/L (22-29); Chloride 101 mmol/L (98-107); Estimated GFR-MDRD 45; Glucose 114 mg/dL (70-105); Potassium 3.4 mmol/L (3.5-5.1); Sodium 134 mmol/L (136-145)
[2019-04-23 07:00] LABS: Band 15 % (5-11); Lymphocytes 5 % (21-51); MDiff Complete? YES; Metamyelocyte 3 % (0-0); Monocytes 3 % (0-10); Neutrophil 74 % (42-75); Platelet Morphology Comment Appears Increased; Polychromasia SLIGHT = 2-3 cells (100X) (0-2/hpf)
[2019-04-23] MEDS: Prenatal Vitamin 1 TAB PO SCH (08:33)
[2019-04-23] MEDS: HYDROcodone/Acetaminophen 5/325 mg Tablet PO PRN (08:34)
[2019-04-23] MEDS: Ferrous Sulfate 325 MG TAB PO SCH ×2 (08:34→21:20)
[2019-04-23] MEDS: Doxycycline 100 MG CAP PO SCH ×2 (08:34→21:21)
[2019-04-23] MEDS: Linezolid 600 MG in Premix Bag 1 BAG IVPB SCH ×2 (08:37→21:28)
[2019-04-23] MEDS: Docusate Calcium (SURFAK) 240 MG CAP PO SCH ×2 (08:43→21:20)
[2019-04-23] MEDS ORDERED: Diphenoxylate HCl/Atropine Tablet PO SCH (09:30)
[2019-04-23] MEDS ORDERED: Potassium Chloride 20 MEQ TAB PO SCH (11:00)
--- NOTE | 2019-04-23 12:20 | PRG ---
DATE OF SERVICE: 04/23/2019 SUBJECTIVE: Patient was seen and examined at bedside and overnight events noted. Patient denies any shortness of breath or chest pain or palpitation. No history of nausea or vomiting or diarrhea or fever or chills or cramps. OBJECTIVE: GENERAL: This is a well-built female, in no apparent distress. VITAL SIGNS: Temperature 96, heart rate 106, respiratory rate 16, and blood pressure 130/90. HEENT: Atraumatic, normocephalic. Oral mucosa is moist NECK: Supple. CARDIOVASCULAR: S1, S2 heard. Rate and rhythm regular. RESPIRATORY: Clear to auscultation. GASTROINTESTINAL: Abdomen is soft. MUSCULOSKELETAL: No tenderness. No edema. DERMATOLOGIC: No skin rash. NEUROLOGIC: Alert and awake and oriented X3. No focal neurologic deficits. Moving all the extremities. PSYCHIATRIC: Mood and affect normal. LABORATORY DATA: Potassium 3.4, BUN is 28, and creatinine is 1.4. ASSESSMENT AND PLAN: 1. Acute kidney injury, better. 2. Chronic kidney disease stage 3, better. 3. Hypokalemia, replace. 4. Urinary tract infection. Continue antibiotics. 5. Edema. 6. Hyponatremia. 7. Renal function is much better. Avoid nephrotoxins. Job ID: [id number]
--- NOTE | 2019-04-23 19:47 | PRG ---
DATE OF SERVICE: 04/23/2019 SUBJECTIVE: Feeling better. Appears comfortable. Apparently, eating better. No chest pain. Abdominal pain has improved. No genitourinary symptoms. Some diarrhea, probably antibiotic related. OBJECTIVE: VITAL SIGNS: Temperature curve has improved. HEART: S1 and S2. Regular rate. LUNGS: Clear. ABDOMEN: Much less tender than yesterday. The incision appears normal, dry and no erythema, very little induration. EXTREMITIES: Moves extremities equally. LABORATORY DATA: White cell count is still up to 32,000, but bands are down to 15%, not much, but some, continues to have steady drop in bands. Creatinine 1.47. GFR at 45, which is improved. Microbiology, no new findings. ASSESSMENT AND DISCUSSION: Preeclampsia, section, some meconium staining with postop hemoperitoneum as well as pelvic hematoma, neutrophilia with bandemia and fever. The patient is being treated with presumption of infected hematoma. Septic pelvic thrombophlebitis is less likely, but due to renal failure could not be ruled out with contrast administration during the CT scan. Overall improvement is noticed and hopefully will start seeing a decrease in white cell count. There is a potential discharge planning for tomorrow. The problem is going to be the antimicrobial regimen for discharge planning. Combination of cephalosporin plus doxycycline would be an option. In the absence of a firm diagnosis, there is a chance for relapse of the process once the IV antimicrobials are discontinued though. It will depend on the extent that the laboratory findings improve by tomorrow. Job ID: [id number]
[2019-04-24] MEDS: MEROPENEM 1 GM/50 ML 1 GM in Premix Bag 1 BAG IVPB SCH ×2 (00:56→13:51)
[2019-04-24] MEDS: hydrALAZINE 25 MG TAB PO SCH ×2 (06:00→13:51)
[2019-04-24 06:09] LABS: Anion Gap 17 mmol/L (10-20); BUN (Urea Nitrogen) 25 mg/dL (7.0-18.7); Calc. Creatinine Clearance 60 mL/min (70-130); Calcium 9.5 mg/dL (7.8-10.44); Carbon Dioxide 20 mmol/L (22-29); Chloride 102 mmol/L (98-107); Estimated GFR-MDRD 47; Glucose 109 mg/dL (70-105); Potassium 3.6 mmol/L (3.5-5.1); Sodium 135 mmol/L (136-145)
[2019-04-24 06:23] LABS: Band 6 % (5-11); Hemoglobin 9.9 g/dL (12.0-16.0); Lymphocytes 16 % (21-51); MDiff Complete? YES; Mean Corpuscular HGB CONC 34.4 g/dL (32.0-36.0); Mean Corpuscular Hemoglobin 30.8 pg (27.0-31.0); Mean Corpuscular Volume 89.3 fL (78.0-98.0); Mean Platelet Volume 6.4 fL (7.4-10.4); Metamyelocyte 7 % (0-0); Monocytes 10 % (0-10); Myelocyte 1 % (0-0); Neutrophil 60 % (42-75); Platelet Count 578 thou/uL (130-400); Platelet Morphology Comment Appears Increased; RBC Distribution Width 13.3 % (11.5-14.5); RBC Morphology Normal; Red Blood Cell (RBC) Count 3.23 mill/uL (4.20-5.40)
[2019-04-24] MEDS: Ferrous Sulfate 325 MG TAB PO SCH (09:17)
[2019-04-24] MEDS: Doxycycline 100 MG CAP PO SCH ×2 (09:17→18:32)
[2019-04-24] MEDS: Linezolid 600 MG in Premix Bag 1 BAG IVPB SCH (09:18)
[2019-04-24] MEDS: Prenatal Vitamin 1 TAB PO SCH (09:18)
[2019-04-24] MEDS: Docusate Calcium (SURFAK) 240 MG CAP PO SCH (09:26)
--- NOTE | 2019-04-24 13:15 | PRG ---
DATE OF SERVICE: 04/24/2019 SUBJECTIVE: Patient was seen and examined at bedside and overnight events noted. Patient denies any shortness of breath or chest pain or palpitation. No history of nausea or vomiting or diarrhea or fever or chills or cramps. OBJECTIVE: GENERAL: This is a well-built female, in no apparent distress. VITAL SIGNS: Temperature 99.0. Heart rate 118. Respiratory rate 20. Blood pressure 130/80. HEENT: Atraumatic, normocephalic. Oral mucosa is moist. NECK: Supple. CARDIOVASCULAR: S1, S2 heard. Rate and rhythm regular. RESPIRATORY: Clear to auscultation. GASTROINTESTINAL: Abdomen is soft. MUSCULOSKELETAL: No tenderness. No edema. DERMATOLOGIC: No skin rash. NEUROLOGIC: Alert and awake and oriented x3. No focal neurologic deficits. Moving all the extremities. PSYCHIATRIC: Mood and affect normal. LABORATORY DATA: Potassium is 3.6, BUN is 55, and creatinine is 1.4. ASSESSMENT AND PLAN: 1. Acute kidney injury, better. 2. Chronic kidney disease, stage 3, stable. 3. Hypokalemia, better. 4. Urinary tract infection. Continue to follow with ID. 5. Edema, controlled. 6. Hyponatremia. Follow with ID. Renal function is better. Job ID: [id number]
--- NOTE | 2019-04-24 15:32 | PRG ---
DATE OF SERVICE: 04/24/2019 SUBJECTIVE: Doing well. She has her baby with her at the moment. No headaches. No respiratory symptoms. No abdominal pain. Eating without problems. Diarrhea has improved. OBJECTIVE: VITAL SIGNS: T-max 99.4, blood pressure 130/88, pulse 118, respiratory rate 24 to 28, O2 saturation 100. GENERAL: Does not appear in distress. LUNGS: Symmetric. Clear breath sounds. ABDOMEN: Soft, site appears normal. Tenderness in the suprapubic area has diminished markedly. The abdomen is soft. EXTREMITIES: Moves extremities equally. LABORATORY DATA: White cell count still up to 34,000, hemoglobin 9.9, platelets are up to 578. The differential, however, has improved to 60% neutrophils and 6% bands. The creatinine is 1.4. No new microbiology info. ASSESSMENT AND DISCUSSION: 1. Preeclampsia. 2. . 3. Postop hemoperitoneum and pelvic hematoma. 4. Neutrophilia with bandemia and fever with presumption of infected hematoma, septic pelvic thrombophlebitis is less likely, but not yet completely ruled out. 5. Renal insufficiency which appears to be acute on chronic with improvement. At this moment, we will transition her to oral doxycycline, Omnicef. Discontinue the remainder antimicrobials and see how her white cell count behaves tomorrow, clinical status and consider discharge planning. There is still risk of more complex process in the abdominal pelvic area. In that case, she would need repeat imaging study. At this time, I would probably do an MRI without contrast or an MRI with contrast, but hopefully that is not going to be necessary. Job ID: [id number]
[2019-04-24 16:15] VITALS: BP 131/80; TEMP 99
[2019-04-24] MEDS ORDERED: Cefdinir 300 MG CAP PO SCH (21:00)
--- NOTE | 2019-04-25 16:10 | DIS ---
DATE OF ADMISSION: 04/14/2019 DATE OF DISCHARGE: 04/24/2019 DISCHARGE DIAGNOSES: 1. 38-week intrauterine status post delivery via primary section secondary to failed induction. 2. Preeclampsia. 3. Acute renal failure superimposed on chronic renal failure. 4. Anemia secondary to blood loss. 5. Hemoperitoneum and pelvic hematoma postop. 6. Fever with neutrophilia and bandemia. HISTORY: Rosalinda is a 19-year-old Latin-[place] female, primigravida, followed in my clinic throughout her , who was admitted on 04/14/2019 from my office at 38 weeks gestation upon notification of 2+ proteinuria with normal pressures. The patient was admitted to Labor and Delivery initially for observation for evaluation for possible preeclampsia. Her initial laboratory results revealed a creatinine of 1.68; CBC, normal white count, hemoglobin 11, and normal platelets. The patient was admitted initially for 24-hour urine studies, but upon further consultation with Dr. Ziyad Lui at OB labor, a decision was made to go ahead and induce labor. The patient underwent vaginal Cytotec followed by following morning, followed by artificial rupture of membrane, which noted moderate meconium fluid. The patient progressed very slowly with minimal progress, past 5 cm, then noted later on hospital day #2 severe ranged blood pressures in the 160/110. She was subsequently started on IV magnesium for preeclampsia. The patient had good urine output. No other symptoms noted in the following morning, non-reassuring heart tones of approximately 45 minutes with an essentially nonreactive heart tone strip, although no deceleration. Discussion made with OB Labor as well as the patient and father of the baby. Decision was made for primary section. The patient underwent primary section on 04/18/2019 without complications. Quantitative blood loss was 300 mL. The patient went to Labor ICU for continuation of magnesium, but later on her magnesium level at 9.0, magnesium was subsequently discontinued. The patient was then at that point transferred to the medical ICU for closer monitoring of her acute with superimposed chronic renal failure due to decreased urine output. A consultation was obtained with Dr. Okeefe of Nephrology as well as Dr. Vega of Neurology. Bladder ultrasound revealed no obstructive uropathy. A CT of her abdomen was obtained, which also revealed some right hydronephrosis, but no obstruction. The patient remained fairly stable, but noted her hemoglobin dropped to 6.8 on postop day 1 and down to 5.6 on postop day 2. The patient was transfused 2 units of packed red blood cells. Repeat CT of her abdomen and pelvis revealed a stable hemoperitoneum as well as hematoma just anterior to the incision. The patient remained afebrile, although she had an elevated white count of 21 with 17 bands, which then increased to 56 bands on 04/17. She was in the CCU with consults with Dr. Bennett, but did not feel antibiotics were warranted, and the patient remained afebrile, most likely due to a stress reaction. She was subsequently transferred to the floor on postop day #3. Her hemoglobin stabilized; her white count stabilized; bandemia continued, but stable. Noted the patient developed a fever on postop day #[address] of the abdomen was obtained to rule out abscess, which again revealed stable changes with hemoperitoneum and hematoma. Blood cultures and urine culture were obtained. Urine culture only grew strep group G, which is felt to be a contaminant. Chest x-ray was ordered, which was negative. Bilateral venous Dopplers were ordered, which were negative. Consult obtained with Dr. Darnell. The patient had originally been started on IV Flagyl and Rocephin, and these antibiotics were changed to IV Zosyn, meropenem, and p.o. doxycycline. The patient became afebrile within 36 hours. She had some mild abdominal tenderness, which resolved. She continued to have an elevated white count with bandemia, but clinically improving. She was changed to p.o. antibiotics of p.o. doxycycline and Omnicef on the day of discharge with recommendations to follow overnight and repeat blood work the following morning, but the patient is adamant to be discharged home due to social situation with father of baby needing to return to work. Multiple discussions with patient regarding that we do recommend that she be observed overnight. She understands the risks involved with being discharged early. Her latest labs on 04/24 revealed creatinine of 1.40, GFR 47, hemoglobin of 9.9 with white count of 34, 6 bands, and platelet count had increased from 299 on 04/21 to 578 on 04/24. DISCHARGE MEDICATIONS: 1. Omnicef 300 mg p.o. b.i.d. 2. Doxycycline 100 mg p.o. b.i.d. x10 days. 3. Hydralazine 25 mg t.i.d. 4. Ferrous sulfate 325 b.i.d. Noted that prescription for tramadol had previously been sent to the pharmacy. We will remove her skin tim and apply Steri-Strips. The patient to follow up with me within 1 to 2 days. Job ID: [id number]
== END 2019-04-24 19:05 | disposition home or self-care (01) | DRG 787 ==
LOC: L&D/OP 11:27 → L&D 12:28 → OBSVTOIN 12:28 → L&D 04-16 18:45 → CCU 04-17 12:31 → 3SE 04-18 11:40
PROVIDERS: ADMIT Family Medicine; ATTEND Family Medicine
PROC: 3E033VJ Introduction of Other Hormone into Peripheral Vein, Percutaneous Approach (ICD-10-PCS; 2019-04-14)
PROC: 10D00Z1 Extraction of Products of Conception, Low, Open Approach (ICD-10-PCS; principal; 2019-04-16)
DX: O24.420 Gestational diabetes mellitus in childbirth, diet controlled (principal); N17.9 Acute kidney failure, unspecified; D62 Acute posthemorrhagic anemia; N13.30 Unspecified hydronephrosis; O72.1 Other immediate postpartum hemorrhage; O86.20 Urinary tract infection following delivery, unspecified; L76.32 Postprocedural hematoma of skin and subcutaneous tissue following other procedure; E87.1 Hypo-osmolality and hyponatremia; O76 Abnormality in fetal heart rate and rhythm complicating labor and delivery; O99.02 Anemia complicating childbirth; I12.9 Hypertensive chronic kidney disease with stage 1 through stage 4 chronic kidney disease, or unspecified chronic kidney disease; O11.4 Pre-existing hypertension with pre-eclampsia, complicating childbirth; N18.3 Chronic kidney disease, stage 3 (moderate); E83.42 Hypomagnesemia; O99.89 Other specified diseases and conditions complicating pregnancy, childbirth and the puerperium; Z37.0 Single live birth; Z3A.38 38 weeks gestation of pregnancy
CPT/HCPCS: 36415; 36416; 36430; 51702; 71046; 74176; 76770; 76815; 76819; 76856; 80048; 80053; 81001; 82570; 82805; 83010; 83036; 83615; 83735; 84156; 84550; 85014; 85018; 85025; 85027; 85060; 85384; 85610; 85730; 86780; 86850; 86900; 86901; 87040; 87077; 87086; 87340; 88307; 93970; 99285; C1726; J0360; J0595; J0690; J0696; J1100; J1885; J2001; J2020; J2175; J2185; J2274; J2405; J2590; J3475; J3490; J7070; P9016; S0020

== ENCOUNTER 2019-05-04 22:04 | Emergency (ER) | payer OTHER ==
[2019-05-04 23:19] LABS: #Basophils 0.1 thou/uL (0.0-0.2); #Eosinphils 0.2 thou/uL (0.0-0.7); #Lymphocytes 2.5 thou/uL (1.20-3.40); #Monocytes 1.1 thou/uL (0.11-0.59); #Neutrophils 13.6 thou/uL (1.40-6.50); %Basophils 0.5 % (0.0-1.0); %Eosinophils 1.1 % (0.0-10.0); %Lymphocytes 14.5 % (21.0-51.0); %Monocytes 6.2 % (0.0-10.0); %Neutrophils 77.7 % (42.0-75.0); Hemoglobin 9.6 g/dL (12.0-16.0); Mean Corpuscular HGB CONC 34.8 g/dL (32.0-36.0); Mean Corpuscular Hemoglobin 30.8 pg (27.0-31.0); Mean Corpuscular Volume 88.5 fL (78.0-98.0); Mean Platelet Volume 6.5 fL (7.4-10.4); Platelet Count 520 thou/uL (130-400); RBC Distribution Width 13.3 % (11.5-14.5); Red Blood Cell (RBC) Count 3.11 mill/uL (4.20-5.40); White Blood Cell (WBC) Count 17.5 thou/uL (4.8-10.8)
[2019-05-04 23:39] LABS: ALT (SGPT) 18 U/L (8-55); AST (SGOT) 22 U/L (5-34); Albumin 3.6 g/dL (3.5-5.0); Alkaline Phosphatase 147 U/L (40-110); Anion Gap 15 mmol/L (10-20); BUN (Urea Nitrogen) 17 mg/dL (7.0-18.7); Bilirubin, Total 0.5 mg/dL (0.2-1.2); Calc. Creatinine Clearance 0 mL/min (70-130); Calcium 8.3 mg/dL (7.8-10.44); Carbon Dioxide 22 mmol/L (22-29); Chloride 102 mmol/L (98-107); Estimated GFR-MDRD 51; Globulin 3.6 g/dL (2.4-3.5); Glucose 94 mg/dL (70-105); Potassium 3.4 mmol/L (3.5-5.1); Protein, Total 7.2 g/dL (6.0-8.3); Sodium 136 mmol/L (136-145)
[2019-05-04 23:47] LABS: Bilirubin Negative (Negative); Blood, Urine 3+ (Negative); Clarity Clear (Clear); Glucose, Urine (Dipstick) Normal (Negative); Leukocyte 500 Leu/uL (Negative); Nitrite Negative (Negative); Protein, Urine (Dipstick) 50 mg/dL (Neg-Trace); RBC/HPF 0-3 HPF (0-3); Squamous Epithelial 0-3 HPF (0-3); Urobilinogen Normal mg/dL (Less than 2); WBC/HPF Greater than 50 HPF (0-3)
[2019-05-04 23:48] LABS: Bacteria/HPF 1+ HPF (None Seen)
== END 2019-05-04 23:59 | disposition home or self-care (01) ==
LOC: ERS 22:04
DX: O86.20 Urinary tract infection following delivery, unspecified (principal); O86.4 Pyrexia of unknown origin following delivery; O99.13 Other diseases of the blood and blood-forming organs and certain disorders involving the immune mechanism complicating the puerperium; D72.829 Elevated white blood cell count, unspecified
CPT/HCPCS: 36415; 80053; 81003; 81015; 83605; 85025; 87040; 87077; 87086; 87186; 87804; 99283

== ENCOUNTER 2019-12-20 11:05 | Emergency (ER) | payer OTHER ==
--- NOTE | 2019-12-20 14:28 | ULT ---
EXAM: Pelvic ultrasound HISTORY: Syncope in a female COMPARISON: None TECHNIQUE: Multiple grayscale and color Doppler images were obtained in a transabdominal pelvic ultra sound. Spectral analysis of the Doppler waveforms of the ovaries were performed. FINDINGS: UTERUS: There is an intrauterine gestational sac. This contains a yolk sac and pole. [place]-rump length: 3.28 cm which estimates gestational age at 10 weeks 1 day. A heart rate is detected at 175 bpm. No evidence of subchorionic hemorrhage. No free fluid is seen in the pelvis. RIGHT OVARY: Normal flow without focal mass. LEFT OVARY: Not seen. IMPRESSION: Single live intrauterine with estimated age of 10 weeks 1 day.
[2019-12-20 14:35] LABS: Glucose 71 mg/dL (70-105)
[2019-12-20 14:50] LABS: Bilirubin Negative (Negative); Blood, Urine Negative (Negative); Clarity Clear (Clear); Glucose, Urine (Dipstick) Normal (Negative); Ketone, Urine 20 mg/dL (Negative); Leukocyte Negative Leu/uL (Negative); Nitrite Negative (Negative); Protein, Urine (Dipstick) 50 mg/dL (Neg-Trace); RBC/HPF 0-3 HPF (0-3); Specific Gravity, Urine 1.007 (1.002-1.036); Squamous Epithelial 0-3 HPF (0-3); Urobilinogen Normal mg/dL (Less than 2); WBC/HPF 0-3 HPF (0-3)
[2019-12-20 14:54] LABS: Bacteria/HPF 1+ HPF (None Seen)
== END 2019-12-20 15:13 | disposition home or self-care (01) ==
LOC: ERS 11:05
DX: O99.891 Other specified diseases and conditions complicating pregnancy (principal); R55 Syncope and collapse; R42 Dizziness and giddiness; Z3A.10 10 weeks gestation of pregnancy
CPT/HCPCS: 36415; 76856; 81001; 82947; 87086; 93005; 93976

== ENCOUNTER 2020-04-13 08:09 | Outpatient (CLI) | payer OTHER | END 2020-04-13 08:10 | disposition home or self-care (01) | LOC: BICULT 08:09 | PROVIDERS: ATTEND Family Medicine | DX: O09.92 Supervision of high risk pregnancy, unspecified, second trimester (principal); Z3A.26 26 weeks gestation of pregnancy; O40.2XX0 Polyhydramnios, second trimester, not applicable or unspecified | CPT/HCPCS: 76805 ==